=== PATIENT | male | born 1945 | race Caucasian/White ===

== ENCOUNTER → 2018-04-10 14:41 | Outpatient (CLI) | payer MEDICARE, SELFPAY ==
[2018-04-10 16:43] LABS: Creatine Kinase 59 U/L (55-170)
[2018-04-10 17:01] LABS: CKMB % Relative Index 1.6 % (1.5-5.0); Creatine Kinase MB 0.92 ng/mL (<2.37)
[2018-04-10 17:03] LABS: Troponin I < 0.012 ng/mL (0.01-0.034)
== END ==
PROVIDERS: PCP Family Medicine; Visit Provider Internal Medicine
DX: R07.9 Chest pain, unspecified (principal)
CPT/HCPCS: 36415; 82550; 82553; 84484

== ENCOUNTER → 2018-04-23 14:44 | Outpatient (CLI) | payer MEDICARE, SELFPAY ==
[2018-04-23 15:39] LABS: Add Manual Diff / Slide Review NO; Eosinophils Percent Auto 8.1 % (2-4); Hematocrit 44.4 % (41-53); Hemoglobin 14.8 g/dL (13.5-17.5); Lymphocytes Percent Auto 26.2 % (25-40); Mean Corpuscular HGB Conc 33.4 % (30-36); Mean Corpuscular Hemoglobin 30.8 PG (26-34); Mean Corpuscular Volume 92.2 fL (80-100); Monocytes Percent Auto 7.3 % (3-14); Neutrophils Absolute Auto 4000 /uL (3000-5900); Neutrophils Percent Auto 57.4 % (50-75); Platelet Count 147 X10^3/uL (150-400); Red Blood Cell Count 4.82 X10^6/uL (4.5-5.9); Red Cell Distribution Width 13.7 % (11.6-14.8)
[2018-04-23 16:09] LABS: C-Reactive Protein Quant < 0.5 mg/dL (<1.0); Erythrocyte Sedimentation Rate 6 MM/HR (0-15)
[2018-04-23 16:37] LABS: Thyroid Stimulating Hormone 1.38 uIU/mL (0.47-4.68)
== END ==
PROVIDERS: PCP Family Medicine; Visit Provider Family Medicine
DX: R42 Dizziness and giddiness (principal)
CPT/HCPCS: 36415; 84443; 85025; 85651; 86140

== ENCOUNTER 2018-05-07 09:45 | Outpatient (RCR) | payer MEDICARE, SELFPAY ==
--- NOTE | 2018-04-30 10:30 | PT.OIE ---
Current Diagnoses Dizziness and giddiness (04/30/18) Past Medical History (Last Updated 04/10/18 @ 10:05 by Odette Roque) Fractures (Resolved 1975) Hand abrasion, infected (Resolved 05/2015) Shoulder pain (Resolved 1975) Past Surgical History (Last Updated 04/10/18 @ 10:05 by Odette Roque) Anesthesia (Resolved) Status post cholecystectomy (Resolved 01/2015) Provider Visit Care Team Role Provider Type Paolo Canales MD Attending Provider Physician Family Provider Primary Care Provider Specialty: Family Practice Address: [address] [place] [address] Email: [email or web address] Physical Therapy Initial Evaluation PT-OP-A Visit Information Start: 04/30/18 11:22 Freq: Status: Active Protocol: Document 04/30/18 11:23 MDD (Rec: 04/30/18 11:45 MDD [email or web address]) Out-Patient Physical Therapy Visit Information Visit Information Visit Type Initial Evaluation Visit Start Time 09:47 Visit Stop Time 10:30 Visit Number 1 Number of CHEMISTRY TEACHER Visits 0 Evaluation Information Evaluation Date 04/30/18 PT-OP-B Current Condition Start: 04/30/18 11:22 Freq: Status: Active Protocol: Document 04/30/18 11:23 MDD (Rec: 04/30/18 11:45 MDD [email or web address]) Current Condition History of Current Condition Onset Date more than a year ago Current Complaints dizziness, nausea History of Current Condition Comes in with his , Barbara. Pt reports intermittent dizziness that seems to occur every other day. Reports some low level dizziness that is constant, but worsens with looking up or turning quickly. Describes the room as spinning. Also comes on if he sees someone else moving their head. Worse in the morning and usually improves as the day goes on. Has not vomited, but does get nauseous . Also feels sweaty after symptoms resolve. Uses a tripod cane. Doesn't drive on days it is bad. Has not fallen due to dizziness, but staggers and wall walks if needed. Had a fall yesterday when he sat in a wheelchair without using the brakes. Prior Treatments and Tests Multiple brain images. Has not tried medication. Future Testing and Treatments Planned Also has an appointment with an hide tanner scheduled. Treatment Goals Patient/Caregiver Goals Resolve dizziness. Prior Functional Status Baseline Function- ADL's Independent Baseline Function- Mobility Independent Baseline Function- Gait mod Ind with tripod cane Current Functional Impairments (Reported) Functional Limitations- Mobility/Gait unsteady with gait Functional Limitations- Other unable to drive on days symptoms are bad PT-OP-C Subjective Start: 04/30/18 11:22 Freq: Status: Active Protocol: Document 04/30/18 11:23 MDD (Rec: 04/30/18 11:45 MDD [email or web address]) Patient Questionnaires ABC- Activity Specific Balance Confidence Scale ABC Score 49.375 ABC Functional Impairment 40 to <60% Impaired (Score 41- 60) PT-OP-K Range of Motion Start: 04/30/18 11:22 Freq: Status: Active Protocol: Document 04/30/18 11:23 MDD (Rec: 04/30/18 11:45 MDD [email or web address]) Cervical Spine Range of Motion Cervical Spine Active Testing Position Sitting Comments all movements within functional limits. Cervical extension aggravates dizzy symptoms. PT-OP-O Vestibular Start: 04/30/18 11:22 Freq: Status: Active Protocol: Document 04/30/18 11:23 MDD (Rec: 04/30/18 11:45 MDD [email or web address]) Vestibular Assessment Visual Testing Smooth Pursuits Horizontal wfl Smooth Pursuits Vertical wfl Saccades Horizontal wfl Saccades Vertical wfl Convergence Test WNL Head Shake Negative Vestibulo-Ocular Reflex (VOR1) Negative Vestibulo-Ocular Reflex (VOR2) Negative Positional Testing [place]-Hallpike Positive Left Supine to Sit Negative Sit to Supine Negative PT-OP-Q Treatments Start: 04/30/18 11:22 Freq: Status: Active Protocol: Document 04/30/18 11:23 MDD (Rec: 04/30/18 11:45 MDD [email or web address]) Canalithic Repositioning BPPV Treatment Jay Affected Canal(s) left posterior Reps 1 Comments nystagmus noted with pt report of symptom provocation with each step. PT-OP-T Assessment and Plan Start: 04/30/18 11:22 Freq: Status: Active Protocol: Document 04/30/18 11:23 MDD (Rec: 04/30/18 11:45 MDD [email or web address]) Physical Therapy Assessment Rehab Potential Rehabilitation Potential Excellent Evaluation Complexity Number of Personal Factors/Comorbidities 0 Number of Body Systems Impaired 1-2 Clinical Presentation at Evaluation Stable Impairments Impairments Balance Coordination Gait Vestibular Goals 1 Impairment vestibular Short Term Goal (STG) Pt to report decreased baseline dizziness to no greater than 2/10 with daily activities. STG Duration 2 weeks Control Engineer Goal (LTG) Pt to report no baseline dizziness with daily activities. Assessment Summary Assessment Pt complaining of intermittent dizziness and nausea that is currently limiting his ability to drive and ambulate safely. On examination he has impaired balance, impaired gait and vestibular impairments. His signs and symtpoms seem consistent with BPPV. He should benefit from physical therapy treatment to address the above impairments. Physical Therapy Plan Frequency and Duration Frequency of Treatment 1x/Week Duration of Treatment 4 weeks Plan of Care Start Date 04/30/18 Plan of Care End Date 06/01/18 Next Visit Focus/Plan Next Note Type Treatment Note Next Visit Plan perform shi hallpike with second jay maneuver if positive.
--- NOTE | 2018-04-30 11:48 | PT.OPPOC ---
Current Diagnoses Dizziness and giddiness (04/30/18) Provider Visit Care Team Role Provider Type Paolo Canales MD Attending Provider Physician Family Provider Primary Care Provider Specialty: Family Practice Address: [address] [place] [address], [id number] Email: [email or web address] Plan Of Care PT-OP-T Assessment and Plan Start: 04/30/18 11:22 Freq: Status: Active Protocol: Document 04/30/18 11:23 MDD (Rec: 04/30/18 11:45 MDD [email or web address]) Physical Therapy Assessment Rehab Potential Rehabilitation Potential Excellent Evaluation Complexity Number of Personal Factors/Comorbidities 0 Number of Body Systems Impaired 1-2 Clinical Presentation at Evaluation Stable Impairments Impairments Balance Coordination Gait Vestibular Goals 1 Impairment vestibular Short Term Goal (STG) Pt to report decreased baseline dizziness to no greater than 2/10 with daily activities. STG Duration 2 weeks Telephoto Engineer Goal (LTG) Pt to report no baseline dizziness with daily activities. Assessment Summary Assessment Pt complaining of intermittent dizziness and nausea that is currently limiting his ability to drive and ambulate safely. On examination he has impaired balance, impaired gait and vestibular impairments. His signs and symtpoms seem consistent with BPPV. He should benefit from physical therapy treatment to address the above impairments. Physical Therapy Plan Frequency and Duration Frequency of Treatment 1x/Week Duration of Treatment 4 weeks Plan of Care Start Date 04/30/18 Plan of Care End Date 06/01/18 Next Visit Focus/Plan Next Note Type Treatment Note Next Visit Plan perform shi hallpike with second jay maneuver if positive. Plan of Care Dates Plan of Care Start Date 04/30/18 Plan of Care End Date 06/01/18 Please Sign and Return: I have reviewed this Plan of Care and certify that the skilled therapy services above are required to meet the patient?s needs. Physician Signature Date Printed Name and Credentials Clinical Instructor Signature Printed Name and Credentials
--- NOTE | 2018-05-07 10:10 | PT.OTN ---
Current Diagnoses Dizziness and giddiness (05/07/18) Physical Therapy Treatment Note PT-OP-A Visit Information Start: 04/30/18 11:22 Freq: Status: Active Protocol: Document 05/07/18 10:10 MDD (Rec: 05/07/18 10:34 MDD [email or web address]) Out-Patient Physical Therapy Visit Information Visit Information Visit Type Treatment Note Visit Start Time 09:50 Visit Stop Time 10:10 Total Visit Minutes 20 Visit Number 2 Number of VB NET DEVELOPER Visits 0 Evaluation Information Evaluation Date 04/30/18 PT-OP-B Current Condition Start: 04/30/18 11:22 Freq: Status: Active Protocol: Document 04/30/18 11:23 MDD (Rec: 04/30/18 11:45 MDD [email or web address]) Current Condition History of Current Condition Onset Date more than a year ago Current Complaints dizziness, nausea History of Current Condition Comes in with his , Barbara. Pt reports intermittent dizziness that seems to occur every other day. Reports some low level dizziness that is constant, but worsens with looking up or turning quickly. Describes the room as spinning. Also comes on if he sees someone else moving their head. Worse in the morning and usually improves as the day goes on. Has not vomited, but does get nauseous . Also feels sweaty after symptoms resolve. Uses a tripod cane. Doesn't drive on days it is bad. Has not fallen due to dizziness, but staggers and wall walks if needed. Had a fall yesterday when he sat in a wheelchair without using the brakes. Prior Treatments and Tests Multiple brain images. Has not tried medication. Future Testing and Treatments Planned Also has an appointment with an churn operator scheduled. Treatment Goals Patient/Caregiver Goals Resolve dizziness. Prior Functional Status Baseline Function- ADL's Independent Baseline Function- Mobility Independent Baseline Function- Gait mod Ind with tripod cane Current Functional Impairments (Reported) Functional Limitations- Mobility/Gait unsteady with gait Functional Limitations- Other unable to drive on days symptoms are bad PT-OP-C Subjective Start: 04/30/18 11:22 Freq: Status: Active Protocol: Document 05/07/18 10:10 MDD (Rec: 05/07/18 10:34 MDD [email or web address]) OP-PT Subjective Patient Comments Patient Comments Pt reports that his symptoms have completely resolved. He did feel another attack come on the same day as his initial evaluation, but went through the maneuver himself and reports it gradually resolved over the next few days. Has not had any symptoms at all in the last two days. Patient Reported Progress Improving PT-OP-K Range of Motion Start: 04/30/18 11:22 Freq: Status: Active Protocol: Document 04/30/18 11:23 MDD (Rec: 04/30/18 11:45 MDD [email or web address]) Cervical Spine Range of Motion Cervical Spine Active Testing Position Sitting Comments all movements within functional limits. Cervical extension aggravates dizzy symptoms. PT-OP-O Vestibular Start: 04/30/18 11:22 Freq: Status: Active Protocol: Document 05/07/18 10:10 MDD (Rec: 05/07/18 10:34 MDD [email or web address]) Vestibular Assessment Positional Testing [place]-Hallpike Negative Left Negative Right PT-OP-Q Treatments Start: 04/30/18 11:22 Freq: Status: Active Protocol: Document 05/07/18 10:10 MDD (Rec: 05/07/18 10:34 MDD [email or web address]) Canalithic Repositioning BPPV Treatment [place] Affected Canal(s) No affected canals Reps 1 Comments Reviewed maneuver today for self treatment if indicated. PT-OP-T Assessment and Plan Start: 04/30/18 11:22 Freq: Status: Active Protocol: Document 05/07/18 10:10 MDD (Rec: 05/07/18 10:34 MDD [email or web address]) Physical Therapy Assessment Rehab Potential Rehabilitation Potential Excellent Goals 1 Impairment vestibular Short Term Goal (STG) Pt to report decreased baseline dizziness to no greater than 2/10 with daily activities. STG Duration 2 weeks Group Home Goal (LTG) Pt to report no baseline dizziness with daily activities. Progress Towards Goals Progress Towards Goals Progressing Toward Goals Goals Met Progress Comments Pt reports full resolution of dizzy symptoms today. Physical Therapy Plan Discharge Physical Therapy Discharge Reasons Goals Met
== END 2018-07-23 16:09 ==
LOC: PHYS 09:45
PROVIDERS: Family Provider Family Medicine; PCP Family Medicine; Visit Provider Family Medicine
DX: R42 Dizziness and giddiness (principal)
CPT/HCPCS: 95992; 97161

== ENCOUNTER → 2018-07-25 09:37 | Outpatient (CLI) | payer MEDICARE, SELFPAY ==
[2018-07-25 10:41] LABS: Add Manual Diff / Slide Review NO; Basophils Percent Auto 0.8 % (0-2); Eosinophils Percent Auto 8.5 % (2-4); Hematocrit 43.5 % (41-53); Hemoglobin 14.5 g/dL (13.5-17.5); Lymphocytes Percent Auto 26.9 % (25-40); Mean Corpuscular HGB Conc 33.3 % (30-36); Mean Corpuscular Hemoglobin 30.6 PG (26-34); Mean Corpuscular Volume 91.9 fL (80-100); Monocytes Percent Auto 6.4 % (3-14); Neutrophils Absolute Auto 3600 /uL (3000-5900); Neutrophils Percent Auto 57.4 % (50-75); Platelet Count 147 X10^3/uL (150-400); Red Blood Cell Count 4.74 X10^6/uL (4.5-5.9); White Blood Cell Count 6.2 X10^3/uL (4.5-11.0)
[2018-07-25 11:06] LABS: Uric Acid 6.5 mg/dL (3.5-8.5)
[2018-07-25 11:09] LABS: Erythrocyte Sedimentation Rate 11 MM/HR (0-15)
== END ==
PROVIDERS: PCP Family Medicine; Visit Provider Family Medicine
DX: M10.9 Gout, unspecified (principal)
CPT/HCPCS: 36415; 84550; 85025; 85651

== ENCOUNTER → 2019-02-07 07:56 | Outpatient (CLI) | payer MEDICARE, SELFPAY ==
[2019-02-07 09:05] LABS: Add Manual Diff / Slide Review NO; Basophils Absolute Auto 100 /uL (0-100); Basophils Percent Auto 0.8 % (0-2); Eosinophils Absolute Auto 400 /uL (0-450); Eosinophils Percent Auto 6.2 % (2-4); Hematocrit 44.3 % (41-53); Hemoglobin 14.8 g/dL (13.5-17.5); Lymphocytes Absolute Auto 1900 /uL (1100-4500); Lymphocytes Percent Auto 27.2 % (25-40); Mean Corpuscular HGB Conc 33.3 % (30-36); Mean Corpuscular Hemoglobin 30.5 PG (26-34); Mean Corpuscular Volume 91.6 fL (80-100); Monocytes Absolute Auto 500 /uL (0-900); Monocytes Percent Auto 6.5 % (3-14); Neutrophils Absolute Auto 4200 /uL (1500-7000); Neutrophils Percent Auto 59.3 % (50-75); Platelet Count 150 X10^3/uL (150-400); Red Blood Cell Count 4.84 X10^6/uL (4.5-5.9); Red Cell Distribution Width 14.3 % (11.6-14.8); White Blood Cell Count 7.2 X10^3/uL (4.5-11.0)
[2019-02-07 09:51] LABS: Alanine Aminotransferase 38 IU/L (21-72); Albumin 4.3 g/dL (3.5-5.0); Albumin Globulin Ratio 1.5 (1.0-2.8); Alkaline Phosphatase 78 U/L (38-126); Aspartate Aminotransferase 30 IU/L (17-59); BUN Creatinine Ratio 17.5 (6-22); Bilirubin Total 0.7 mg/dL (0.2-1.3); Blood Urea Nitrogen 21 mg/dL (9-20); Calcium 9.2 mg/dL (8.4-10.2); Carbon Dioxide 29 mmol/L (22-32); Chloride 103 mmol/L (98-107); Cholesterol 184 mg/dL (140-199); Globulin 2.8 g/dL (1.7-4.1); Glucose 100 mg/dL (80-110); HDL Cholesterol 40 mg/dL (40-60); HEMOLYSIS < 15 (0-50); LDL Cholesterol Calculated 125 mg/dL (<100); Potassium 4.4 mmol/L (3.4-5.1); Sodium 140 mmol/L (137-145); Total Protein 7.1 g/dL (6.3-8.2); Triglycerides 96 mg/dL (35-150)
[2019-02-07 10:03] LABS: Creatinine Urine Random 94.2 mg/dL
[2019-02-07 10:07] LABS: Microalbumi Creatinin Ratio Ur 9.5 ug/mg CR (<30); Microalbumin Urine Random 0.9 mg/dL (0-1.6)
[2019-02-07 10:19] LABS: Prostate Specific Antigen Scrn 0.493 ng/mL (0.1-4.0)
[2019-02-07 10:22] LABS: Thyroid Stimulating Hormone 1.46 uIU/mL (0.47-4.68)
== END ==
PROVIDERS: PCP Family Medicine; Visit Provider Family Medicine
DX: E78.2 Mixed hyperlipidemia (principal); I10 Essential (primary) hypertension; R89.9 Unspecified abnormal finding in specimens from other organs, systems and tissues; Z12.5 Encounter for screening for malignant neoplasm of prostate; Z13.0 Encounter for screening for diseases of the blood and blood-forming organs and certain disorders involving the immune mechanism; Z13.29 Encounter for screening for other suspected endocrine disorder
CPT/HCPCS: 36415; 80053; 80061; 82043; 82570; 84443; 85025; G0103

== ENCOUNTER → 2019-08-19 12:57 | Outpatient (CLI) | payer MEDICARE, SELFPAY ==
--- NOTE | 2019-08-19 13:00 | DI.RAD.S_ITS ---
PROCEDURE: XR CHEST 2V INDICATIONS: Chest pain TECHNIQUE: 2 views of the chest were acquired. COMPARISON: None. FINDINGS: Surgical changes and devices: Right upper quadrant surgical clips. Lungs and pleura: Low lung volumes with scattered subsegmental atelectasis/scarring. No pleural effusions or pneumothorax. Mediastinum: Mediastinal contours are normal. Heart size is normal. Bones and chest wall: No suspicious bony abnormalities. Soft tissues appear unremarkable. IMPRESSION: Low lung volumes with scattered subsegmental atelectasis/scarring. Dictated by: Piotr Malin M.D. on 08/19/2019 at 16:35 Approved by: Piotr Malin M.D. on 08/19/2019 at 16:36
[2019-08-19 14:35] LABS: Add Manual Diff / Slide Review NO; Basophils Absolute Auto 100 /uL (0-100); Basophils Percent Auto 0.9 % (0-2); Eosinophils Absolute Auto 500 /uL (0-450); Eosinophils Percent Auto 7.1 % (2-4); Hematocrit 45.1 % (41-53); Hemoglobin 15.2 g/dL (13.5-17.5); Lymphocytes Absolute Auto 1800 /uL (1100-4500); Lymphocytes Percent Auto 27.8 % (25-40); Mean Corpuscular HGB Conc 33.7 % (30-36); Mean Corpuscular Hemoglobin 30.8 PG (26-34); Mean Corpuscular Volume 91.2 fL (80-100); Monocytes Absolute Auto 400 /uL (0-900); Monocytes Percent Auto 6.4 % (3-14); Neutrophils Absolute Auto 3700 /uL (1500-7000); Neutrophils Percent Auto 57.8 % (50-75); Platelet Count 153 X10^3/uL (150-400); Red Blood Cell Count 4.95 X10^6/uL (4.5-5.9); Red Cell Distribution Width 13.7 % (11.6-14.8); White Blood Cell Count 6.4 X10^3/uL (4.5-11.0)
[2019-08-19 14:53] LABS: B Type Natriuretic Peptide < 100 (<100)
[2019-08-19 15:56] LABS: Alanine Aminotransferase 44 IU/L (<50); Albumin 4.5 g/dL (3.5-5.0); Albumin Globulin Ratio 1.6 (1.0-2.8); Alkaline Phosphatase 86 U/L (38-126); Aspartate Aminotransferase 38 IU/L (17-59); Bilirubin Total 0.5 mg/dL (0.2-1.3); Blood Urea Nitrogen 18 mg/dL (9-20); Calcium 9.4 mg/dL (8.4-10.2); Carbon Dioxide 32 mmol/L (22-32); Chloride 102 mmol/L (98-107); Globulin 2.9 g/dL (1.7-4.1); Glucose 88 mg/dL (80-110); HEMOLYSIS 16 (0-50); Potassium 4.1 mmol/L (3.4-5.1); Sodium 141 mmol/L (137-145); Total Protein 7.4 g/dL (6.3-8.2)
[2019-08-19 16:32] LABS: Thyroid Stimulating Hormone 1.75 uIU/mL (0.47-4.68)
== END ==
PROVIDERS: PCP Family Medicine; Visit Provider Family Medicine
DX: R07.9 Chest pain, unspecified (principal)
CPT/HCPCS: 36415; 71046; 80053; 83880; 84443; 85025

== ENCOUNTER → 2020-03-10 08:20 | Outpatient (CLI) | payer MEDICARE, SELFPAY ==
[2020-03-10 09:23] LABS: Add Manual Diff / Slide Review NO; Basophils Absolute Auto 0 /uL (0-100); Basophils Percent Auto 0.8 % (0-2); Eosinophils Absolute Auto 500 /uL (0-450); Eosinophils Percent Auto 7.2 % (2-4); Hematocrit 43.5 % (41-53); Hemoglobin 14.9 g/dL (13.5-17.5); Lymphocytes Absolute Auto 1400 /uL (1100-4500); Mean Corpuscular HGB Conc 34.3 % (30-36); Mean Corpuscular Hemoglobin 31.4 PG (26-34); Mean Corpuscular Volume 91.5 fL (80-100); Monocytes Absolute Auto 400 /uL (0-900); Neutrophils Absolute Auto 4000 /uL (1500-7000); Platelet Count 132 X10^3/uL (150-400); Red Blood Cell Count 4.75 X10^6/uL (4.5-5.9); Red Cell Distribution Width 13.7 % (11.6-14.8); White Blood Cell Count 6.3 X10^3/uL (4.5-11.0)
[2020-03-10 10:04] LABS: Alanine Aminotransferase 42 IU/L (<50); Albumin 4.4 g/dL (3.5-5.0); Albumin Globulin Ratio 1.5 (1.0-2.8); Alkaline Phosphatase 81 U/L (38-126); Aspartate Aminotransferase 39 IU/L (17-59); BUN Creatinine Ratio 16.4 (6-22); Bilirubin Total 0.7 mg/dL (0.2-1.3); Bilirubin Unconjugated 0.6 mg/dL (0.0-1.1); Blood Urea Nitrogen 20 mg/dL (9-20); Calcium 9.4 mg/dL (8.4-10.2); Carbon Dioxide 29 mmol/L (22-32); Chloride 103 mmol/L (98-107); Cholesterol 164 mg/dL (140-199); Estimated Glomerular Filt Rate 57.8 mL/min (>60); Globulin 2.9 g/dL (1.7-4.1); Glucose 102 mg/dL (80-110); HDL Cholesterol 34 mg/dL (40-60); LDL Cholesterol Calculated 115 mg/dL (<100); Potassium 4.5 mmol/L (3.4-5.1); Sodium 141 mmol/L (137-145); Total Protein 7.3 g/dL (6.3-8.2); Triglycerides 74 mg/dL (35-150)
[2020-03-10 10:14] LABS: HEMOLYSIS < 15 (0-50); NT-proBNP (BNP-Adult 18+) 66 pg/mL (<450)
[2020-03-10 10:32] LABS: Thyroid Stimulating Hormone 1.42 uIU/mL (0.47-4.68)
[2020-03-10 10:36] LABS: Prostate Specific Antigen 0.367 ng/mL (0.10-4.00)
== END ==
PROVIDERS: PCP Family Medicine; Referring Provider Internal Medicine Cardiovascular Disease; Visit Provider Internal Medicine Cardiovascular Disease
DX: Z79.899 Other long term (current) drug therapy (principal); R03.0 Elevated blood-pressure reading, without diagnosis of hypertension; I50.30 Unspecified diastolic (congestive) heart failure
CPT/HCPCS: 36415; 80048; 80061; 80076; 83880; 84153; 84443; 85025

== ENCOUNTER → 2021-04-07 14:01 | Outpatient (CLI) | payer MEDICARE, OTHER, SELFPAY ==
--- NOTE | 2021-04-07 14:04 | DI.RAD.S_ITS ---
PROCEDURE: XR HAND LT MIN 3V INDICATIONS: left hand/thumb pain TECHNIQUE: 3 views of the hand(s) acquired. COMPARISON: [facility], , HAND 3V LEFT, 11/15/2006, 10:23. FINDINGS: Bones: No fractures or dislocations. Carpal bones are normally aligned. No suspicious bony lesions. Polyarticular joint space narrowing with periarticular osteophytosis, severe involving the 1st CMC joint. Juxta-articular lucencies are present involving multiple interphalangeal joints. Soft tissues: No suspicious soft tissue calcifications. 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 Dictated by: Tye Hernandez Sofia Interpreted: Aaron Gilbert MD on 04/07/2021 at 14:26 Transcribed by: ABIGAIL on 04/07/2021 at 14:27 Approved by: Aaron Gilbert M.D. on 04/07/2021 at 18:06
--- OUTSIDE RECORDS SUMMARY | 2021-07-19 08:06 | XMS_ITS | Referral Summary ---
:1945 Author Organization [address] [address] Care Team Providers Name Role Phone MD Gary Primary Care Provider Reason for Referral Diagnostic Imaging (Routine) - Authorized Specialty Diagnoses / Procedures Referred By Contact Refer red To Contact Diagnoses WHITE (dyspnea on exertion) [facility] ECHOCARDIO[facility] COMPLETE [address] [place] [address] [place] [id number] [place], [place] [address] Referral ID Status Reason Start Date Expiration Date Visits V isits Requested Authorized [id number] Authorized 07/05/2021 06/30/2022 1 1 Consultation (Routine) - Authorized Specialty Diagnoses / Procedures Referred By Contact Refer red To Contact Diagnoses Fatigue, unspecified type Rosey Alcocer[address] [facility] [address] [place] [address] [place], [place] [address] Referral ID Status Reason Start Expiration Visits Visits Date Date Requested Authorized [id number] Authorized Specialty 07/05/2021 06/30/2022 1 1 Services Required Reason for Visit Reason Comments Establish Care chest pain, HTN Evaluate and Treat (Routine) - Closed Specialty Diagnoses / Procedures Referred By Contact Refer red To Contact Diagnoses Chest pain, unspecified Essential (primary) hypertension Shortness of breath Deshawn Vega MD [facility] Procedures SC OFFICE OUTPATIENT VISIT [address], [address] [place] [address] [place] [address] Phone: [phone] Fax: Referral ID Status Reason Start Date Expiration Date Visits Requ ested Visits Authorized [id number] Closed 05/14/2021 05/09/2022 1 1 Encounter Details Date Type Department Care Team Description 07/05/2021 [facility] Chest pa in, unspecified type (Primary Dx); Clinics Cardiology E., DO WHITE (dyspnea on exertion); [address] Essential hypertension; [address] Dyslipidemia; [place], [place] BMI 34.0-3 4.9,adult; [id number] Fatigue, unspecified type [phone] Allergies Active Allergy Reactions Severity Noted Date Comments Oxycodone Hives 08/29/2019 documented as of this encounter (statuses as of 07/16/2021) Medications Medication Sig Dispensed Refills Start Date End Date Status amLODIPine (NORVASC) 5 Take 5 mg by 0 Active mg tablet mouth daily aspirin 81 mg EC tablet Take 81 mg by 0 Active mouth daily ascorbic acid, vitamin Take 500 mg by 0 Active C, (VITAMIN C) 500 mg mouth tablet documented as of this encounter (statuses as of 07/16/2021) Active Problems Problem Noted Date Essential hypertension 07/05/2021 documented as of this encounter (statuses as of 07/16/2021) Social History Tobacco Use Types Packs/Day Years Used Date Never Smoker Smokeless Tobacco: Never Used Alcohol Use Standard Drinks/Week Comments Not Currently 0 (1 standard drink = 0.6 oz pure alcoho l) Sex Assigned at Date Recorded Not on file Job Start Date Occupation Industry Not on file Not on file Not on file documented as of this encounter Last Filed Vital Signs Vital Sign Reading Time Taken Comments Blood Pressure 115/78 07/05/2021 2:37 PM PDT Pulse 65 07/05/2021 2:37 PM PDT Temperature - - Respiratory Rate - - Oxygen Saturation 98% 07/05/2021 2:37 PM PDT Inhaled Oxygen Concentration - - Weight 106 kg (233 lb) 07/05/2021 2:37 PM PDT Height 175.3 cm (5' 9) 07/05/2021 2:37 PM PDT Body Mass Index 34.41 07/05/2021 2:37 PM PDT documented in this encounter Progress Notes Rosey Alcocer, DO - 07/05/2021 2:50 PM PDT Images from the original note were not included. About 1 week before your next appt, have a fasting blood test. Patient Education Heart Healthy Diet ELEMENTARY CLASSROOM TEACHER: A heart healthy diet is an eating plan low in unhealthy fats and sodium (salt). The plan is high inhealthy fats and fiber. A heart healthy diet helps improve your cholesterol levels and lowers your risk for heart disease and stroke. A dietitian will teach you how to read and understand food labels. Heart healthy diet guidelines to follow: ?? Choose foods that contain healthy fats. ? Unsaturated fats include monounsaturated and polyunsaturated fats. Unsaturated fat is found in foods such as soybean, canola, olive, corn, and safflower oils. It is also found in soft tub margarine that is made with liquid vegetable oil. ? [place]-3 fat is found in certain fish, such as salmon, tuna, and trout, and in walnuts and flaxseed. Eat fish high in omega-3 fats at least 2 times a week. ?? Get 20 to 30 grams of fiber each day. Fruits, vegetables, whole-grain foods, and legumes (cookedbeans) are good sources of fiber. ?? Limit or do not have unhealthy fats. ? Cholesterol is found in animal foods, such as eggs and lobster, and in dairy products made from whole milk. Limit cholesterol to less than 200 mg each day. ? Saturated fat is found in meats, such as giles and hamburger. It is also found in chicken or turkey skin, whole milk, and butter. Limit saturated fat to less than 7% of your total daily calories. ? Trans fat is found in packaged foods, such as potato chips and cookies. It is also in hard margarine, some fried foods, and shortening. Do not eat foods that contain trans fats. ?? Limit sodium as directed. You may be told to limit sodium to 2,000 to 2,300 mg each day. Choose low-sodium or ca-uayo-indxs foods. Add little or no salt to food you prepare. Use herbs and spices inplace of salt. Include the following in your heart healthy plan: Ask your dietitian or healthcare provider how many servings to have from each of the following food groups: ?? Grains: ? Whole-wheat breads, cereals, and pastas, and brown rice ? Low-fat, low-sodium crackers and chips ?? Vegetables: ? Broccoli, green beans, green peas, and spinach ? Collards, kale, and ochoa beans ? Carrots, sweet potatoes, tomatoes, and peppers ? Canned vegetables with no salt added ?? Fruits: ? Bananas, peaches, pears, and pineapple ? Grapes, raisins, and dates ? Oranges, tangerines, grapefruit, orange juice, and grapefruit juice ? Apricots, mangoes, melons, and papaya ? Raspberries and strawberries ? Canned fruit with no added sugar ?? Milks: Low-fat almond, cashew, or soy milks fortified with calcium ? Proteins: ? Legumes, soy products or nuts Limit or do not include the following in your heart healthy plan: ?? Unhealthy fats and oils: ? Whole or 2% milk, cream cheese, sour cream, or cheese ? High-fat cuts of beef (T-bone steaks, ribs), chicken or turkey with skin, and organ meats such as liver ? Butter, stick margarine, shortening, and cooking oils such as coconut or palm oil ?? Foods and liquids high in sodium: ? Packaged foods, such as frozen dinners, cookies, macaroni and cheese, and cereals with more than 300 mg of sodium per serving ? Vegetables with added sodium, such as instant potatoes, vegetables with added sauces, or regular canned vegetables ? Cured or smoked meats, such as hot dogs, giles, and sausage ? High-sodium ketchup, barbecue sauce, salad dressing, pickles, olives, soy sauce, or miso ?? Foods and liquids high in sugar: ? Candy, cake, cookies, pies, or doughnuts ? Soft drinks (soda), sports drinks, or sweetened tea ? Canned or dry mixes for cakes, soups, sauces, or gravies Other healthy heart guidelines: ?? Do not smoke. Nicotine and other chemicals in cigarettes and cigars can cause lung and heart damage. Ask your healthcare provider for information if you currently smoke and need help to quit. E-cigarettes or smokeless tobacco still contain nicotine. Talk to your healthcare provider before you use these products. ?? Limit or do not drink alcohol as directed. Alcohol can damage your heart and raise your blood pressure. Your healthcare provider may give you specific daily and weekly limits. The general recommended limit is 1 drink a day for women 21 or older and for men 65 or older. Do not have more than 3 drinks in a day or 7 in a week. The recommended limit is 2 drinks a day for men 21 to 64 years of age. Donot have more than 4 drinks in a day or 14 in a week. A drink of alcohol is 12 ounces of beer, 5 ounces of wine, or 1?? ounces of liquor. ?? Exercise regularly. Exercise can help you maintain a healthy weight and improve your blood pressure and cholesterol levels. Regular exercise can also decrease your risk for heart problems. Ask yourhealthcare provider about the best exercise plan for you. Do not start an exercise program without asking your healthcare provider. Follow up with your doctor or power shear operator as directed: Write down your questions so you remember to ask them during your visits. ?? Copyright [employer] 2020 Information is for End User's use only and may not be sold, redistributed or otherwise used for commercial purposes. All illustrations and images included in CareNotes?? are the copyrighted property of [employer] or [employer] The above information is an health education aide only. It is not intended as medical advice for individual conditions or treatments. Talk to your doctor, nurse or pharmacist before following any medical regimen to see if it is safe and effective for you. Belgica Alcocer, - 07/05/2021 2:50 PM PDT Subjective Patient ID: Isreal Broderick is a 75 y.o. male that had concerns including Establish Care (chest pain, HTN). HPI: Chest pain: About 1 month ago he had an episode of L sided, sharp chest pain that was exertional and associated with SOB and diaphoresis. He will also get chest tightness with exertion up hills. No associated nausea, palpitations, lightheadedness or dizziness. ???08/30/2019 cath mild LI noted throughout the coronaries but no obstructive disease. ???06/30/2021 stress echo 9:18, 10.6 METS, 97% peak predicted HR, no ECG or echo evidence of inducible ischemia. Shortness of breath: No orthopnea or LE swelling. Snoring: reports apneic episodes. Hypertension: On amlodipine 5 mg daily. Dyslipidemia: No medical therapy for this. 04/09/2021 hemoglobin 15, hematocrit 45, platelets 135, BUN 22, creatinine 1.12, potassium 4.4, glucose 98, AST 40, ALT 38, total cholesterol 179, triglycerides 82, HDL 41, LDL 122 Past Medical History: Diagnosis Date ??? Depression ??? Gout ??? Hyperlipidemia ??? Hypertension ??? Thrombocytopenia (CMS/HCC) Past Surgical History: Procedure Laterality Date ??? CARDIAC CATHETERIZATION 2019 Luminal irregularities ??? GALLBLADDER SURGERY ??? HIP ARTHROPLASTY Right ??? TONSILLECTOMY Family History Problem Relation Age of Onset ??? Cancer Mother ??? Parkinsonism Father ??? Heart attack Father 60 [place] Social History Socioeconomic History ??? Marital status: Spouse name: Not on file ??? Number of children: Not on file ??? Years of education: Not on file ??? Highest education level: Not on file Tobacco Use ??? Smoking status: Never Smoker ??? Smokeless tobacco: Never Used Substance and Sexual Activity ??? Alcohol use: Not Currently ??? Drug use: Never ??? Sexual activity: Defer Allergies Allergen Reactions ??? Oxycodone Hives Current Medication List Sig amLODIPine (NORVASC) 5 mg tablet Take 5 mg by mouth daily ascorbic acid, vitamin C, (VITAMIN C) 500 mg tablet Take 500 mg by mouth aspirin 81 mg EC tablet Take 81 mg by mouth daily Review of Systems Cardiovascular: Positive for chest pain. All other systems reviewed and are negative. Objective BP 115/78 (BP Location: Left arm, Patient Position: Sitting) Pulse 65 Ht 1.753 m Wt 106 kg SpO2 98% BMI 34.41 kg/m?? Physical Exam: General Appearance: Well-nourished, pleasant, cooperative, no apparent distress HEET: Normocephalic atraumatic, EOMI, no scleral icterus, no arcus, tongue midline, mucous membranesmoist, good dentition Neck: No obvious mass, supple Respiratory: Good aeration, clear to auscultation and percussion, no rales or wheeze Cardiovascular: Nondisplaced PMI, RRR, normal S1 and normal S2, no murmurs/rubs/gallops, JVP 4-5 cm,no JVD Pulses: Carotid and femoral pulses 2+ bilaterally without bruit, dorsalis pedis and anterior tibial pulses 2+ bilaterally Abdomen: Soft, nondistended, nontender, no heptosplenomegally, no hepatojugular reflux, normal bowelsounds without bruits Extremities: No clubbing, cyanosis or edema Neuro: Alert, no facial droop, tongue midline, no gross motor deficits Psych: Appropriate affect, normal mentation and memory Skin: Warm and dry, no rashes on face, neck, and lower extremities Assessment/Plan Diagnoses and all orders for this visit: Chest pain, unspecified type - ECG 12 Lead (Clinic - Same Day) WHITE (dyspnea on exertion) - ECHOCARDIOGRAM COMPLETE; Future - Thyroid Stimulating Hormone, Reflex to Free T4; Future Essential hypertension Dyslipidemia - Lipid panel (Fasting); Future - Hepatic function panel (LFT); Future BMI 34.0-34.9,adult Fatigue, unspecified type - SRC MV Referral to [facility] Assessment/Plan Comments: Chest pain: ECG today is normal. Stress test last week did not show evidence of inducible ischemia,indeed he had very good exercise capacity which would argue against significant or proximal obstructive CAD. A component of this could be microvascular disease. I have encouraged him to increase his level of activity in an attempt to improve his exercise capacity. Should he have persistent symptomshowever or feels limited in his exercise abilities, will consider repeat catheterization. Shortness of breath and fatigue: He does have significant amount of fatigue and his reports apnea. I would like a full echocardiogram. I am also referring him to sleep medicine. Hypertension: Blood pressure is adequately controlled. Counseled on a low-salt diet. Continue amlodipine 5 mg daily. Dyslipidemia: LDL 122 April 2021. We discussed a low-fat, low-cholesterol diet. We will repeat a fasting lipid panel and TSH in 5 months prior to next appointment. BMI 34: Discussed a heart healthy diet. He is going to increase his exercise in an attempt to lose weight. Electronically signed by Rsoey Alcocer DO 07/05/2021 4:09 PM documented in this encounter Plan of Treatment Scheduled Orders Name Type Priority Associated Diagnoses Order S chedule ECHOCARDIOGRAM COMPLETE Imaging Routine WHITE (dyspnea on E xpected: 07/05/2021, exertion) Expires: 2022 Lipid panel (Fasting) Lab Routine Dyslipidemia Expect ed: 07/05/2021, Expires: 2021 Hepatic function panel Lab Routine Dyslipidemia Expec sarah: 07/05/2021, (LFT) Expires: 2021 Thyroid Stimulating Lab Routine WHITE (dyspnea on 1 Occ urrences Hormone, Reflex to Free exertion) star ting 07/05/2021 T4 until 2 Scheduled Referrals Name Type Priority Associated Diagnoses Order S chedule SRC MV Referral to Outpatient Referral Routine Fatigue, unspec ified Ordered: [facility] Sleep Clinic type 07/05/2021 documented as of this encounter Procedures Procedure Name Priority Date/Time Associated Diagnosis Comme nts ECG 12-LEAD Routine 07/05/2021 2:58 PM Chest pain, Results for this PDT unspecified type procedure a re in the results section. documented in this encounter Results ECG 12 Lead (Clinic - Same Day) (07/05/2021 2:58 PM PDT) Narrative Rosey Alcocer DO - 07/05/2021 2: 58 PM PDT This result has an attachment that is no t available. Result approved by Matthew Law on 07/05/21 documented in this encounter Visit Diagnoses Diagnosis Chest pain, unspecified type - Primary WHITE (dyspnea on exertion) Other dyspnea and respiratory abnormalit y Essential hypertension Unspecified essential hypertension Dyslipidemia Other and unspecified hyperlipidemia BMI 34.0-34.9,adult Fatigue, unspecified type documented in this encounter Insurance Payer Benefit Plan / Subscriber ID Effective Dates Phone Addre ss Type Group MEDICARE MEDICARE PART [id number] 2008-Presen [phone] [address] [place] [address] [facility] [id number] 2021-Prese [phone] [address] [place] [id number] [place] [address] documented as of this encounter Advance Directives Documents on File Type Date Recorded Patient Circulation Sales Representative Explanati on Advance Directives and Living Will Latest Code Status on File Code Status Date Activated Date Inactivated Comments Full Code 08/30/2019 10:28 AM 08/31/2019 2:35 AM Care Teams Life Insurance Salesperson Relationship Specialty Start Date End Date Deshawn Vega MD PCP - General Family Medicine 05/14/[address] [place] [address], [address] WEI GALLAGHER [phone] documented as of this encounter
== END ==
PROVIDERS: PCP Family Medicine; Referring Provider Family Medicine; Visit Provider Family Medicine
DX: G56.02 Carpal tunnel syndrome, left upper limb (principal); M79.642 Pain in left hand; M18.12 Unilateral primary osteoarthritis of first carpometacarpal joint, left hand
CPT/HCPCS: 73130

== ENCOUNTER → 2021-04-09 09:17 | Outpatient (CLI) | payer MEDICARE, OTHER, SELFPAY ==
[2021-04-09 10:17] LABS: Add Manual Diff / Slide Review NO; Basophils Absolute Auto 0 /uL (0-100); Basophils Percent Auto 0.8 % (0-2); Eosinophils Absolute Auto 400 /uL (0-450); Hematocrit 45.9 % (41-53); Hemoglobin 15.4 g/dL (13.5-17.5); Lymphocytes Absolute Auto 1500 /uL (1100-4500); Lymphocytes Percent Auto 24.9 % (25-40); Mean Corpuscular HGB Conc 33.5 % (30-36); Mean Corpuscular Volume 92.6 fL (80-100); Monocytes Absolute Auto 400 /uL (0-900); Monocytes Percent Auto 7.1 % (3-14); Neutrophils Absolute Auto 3800 /uL (1500-7000); Neutrophils Percent Auto 61.2 % (50-75); Platelet Count 135 X10^3/uL (150-400); Red Blood Cell Count 4.96 X10^6/uL (4.5-5.9); Red Cell Distribution Width 13.6 % (11.6-14.8); White Blood Cell Count 6.2 X10^3/uL (4.5-11.0)
[2021-04-09 10:24] LABS: Creatinine Urine Random 166.1 mg/dL
[2021-04-09 10:28] LABS: Microalbumi Creatinin Ratio Ur 8.4 ug/mg CR (<30); Microalbumin Urine Random 1.4 mg/dL (0-1.6)
[2021-04-09 10:33] LABS: Alanine Aminotransferase 38 IU/L (<50); Albumin 4.5 g/dL (3.5-5.0); Albumin Globulin Ratio 1.6 (1.0-2.8); Alkaline Phosphatase 73 U/L (38-126); Aspartate Aminotransferase 40 IU/L (17-59); BUN Creatinine Ratio 18.2 (6-22); Bilirubin Total 0.9 mg/dL (0.2-1.3); Blood Urea Nitrogen 22 mg/dL (9-20); Calcium 9.7 mg/dL (8.4-10.2); Carbon Dioxide 30 mmol/L (22-32); Chloride 106 mmol/L (98-107); Cholesterol 179 mg/dL (140-199); Estimated Glomerular Filt Rate 58.1 mL/min (>60); Globulin 2.9 g/dL (1.7-4.1); Glucose 98 mg/dL (80-110); HDL Cholesterol 41 mg/dL (40-60); HEMOLYSIS < 15 (0-50); LDL Cholesterol Calculated 122 mg/dL (<100); Potassium 4.4 mmol/L (3.4-5.1); Sodium 142 mmol/L (137-145); Total Protein 7.4 g/dL (6.3-8.2); Triglycerides 82 mg/dL (35-150)
[2021-04-09 11:04] LABS: Prostate Specific Antigen Scrn 0.442 ng/mL (0.1-4.0)
== END ==
PROVIDERS: PCP Family Medicine; Referring Provider Family Medicine; Visit Provider Family Medicine
DX: D69.6 Thrombocytopenia, unspecified (principal); I10 Essential (primary) hypertension; Z12.5 Encounter for screening for malignant neoplasm of prostate; E78.2 Mixed hyperlipidemia; R41.3 Other amnesia
CPT/HCPCS: 36415; 80053; 80061; 82043; 82570; 85025; G0103

== ENCOUNTER → 2021-08-18 08:45 | Outpatient (CLI) | payer MEDICARE, OTHER, SELFPAY ==
--- NOTE | 2021-08-18 08:48 | DI.ECHO.S_ITS ---
[facility]+ : : [address] : [place] : : : : [id number] : : : : Phone: [phone] Echocardiogram Report + + :Name: CINDY SÁNCHEZ V Study Date: 08/18/2021 Height: 69 in : :[facility] ReadingLocation: Weight: 230 lb : : Gender: Male BSA: 2.2 m2 : :: 1945 Age: 75 yrs BP: 142/84 mmHg: :Reason For Study: DYSPNEA : :Ordering Physician: MARGA, : :ROSEY Silva Performed By: Manda Wadsworth : :Referring: ROSEY ALCOCER : + + Interpretation Summary The ejection fraction is estimated to be 65-70%. Diastolic parameters suggest probable normal left ventricular diastolic function and normal filling pressures. The right ventricle is normal in size and function. There is mild mitral regurgitation. Unable to estimate PASP. Compared to the prior study dated 05/01/2014, no significant change. Procedure: A two-dimensional transthoracic echocardiogram with color flow and Doppler was performed. The study quality was technically adequate. Comparison is made with the echocardiogram of 02/13/2018. The patient was in sinus rhythm with heart rates between 59-70 bpm during the exam. Left Ventricle: The left ventricle is normal in size and wall thickness. The ejection fraction is estimated to be 65-70%. Diastolic parameters suggest probable normal left ventricular diastolic function and normal filling pressures. Right Ventricle: The right ventricle is normal in size and function. Atria: The left atrial size is normal. Right atrial size is normal. There is no Doppler evidence for an interatrial shunt. Mitral Valve: The mitral valve is normal in structure and function. There is mild mitral regurgitation. Aortic Valve: The aortic valve is trileaflet. The aortic valve opens well. There is no aortic valve stenosis. No aortic regurgitation is present. Tricuspid Valve: The tricuspid valve is normal in structure and function. There is trace tricuspid regurgitation. Pulmonary artery pressures cannot be estimated because of the lack of a measurable TR jet velocity. Pulmonic Valve: The pulmonic valve leaflets are thin and pliable; valve motion is normal. There is no pulmonic valvular regurgitation. Great Vessels: The aortic root is normal size. The ascending aorta is mildly enlarged. The IVC is of normal diameter and collapses greater than 50% with a sniff. This suggests a low right atrial pressure of 3 mm Hg. Pericardium/ Pleura There is no pericardial effusion. There is no pleural effusion. MMode/2D Measurements & Calculations LVIDd: 4.7 cm LVOT diam: 1.9 cm LVIDs: 2.9 cm Ao root diam: 3.1 cm FS: 37.3 % asc Aorta Diam: 3.9 cm IVSd: 1.0 cm LVPWd: 0.98 cm LV aaron. diameter/BSA (cm/m^2): 2.1 LV sys. diameter/BSA (cm/m^2): 1.3 LA A2 area: 20.9 cm2 RA long axis: 5.0 cm LA A4 area: 17.5 cm2 RA area: 13.9 cm2 LA length (vol): 5.4 cm RA vol: 32.7 ml LA vol: 57.2 ml RA : 14.9 ml/m2 LA vol index: 26.1 ml/m2 IVC diam: 1.7 cm RVD1 (basal): 4.0 cm TAPSE: 1.9 cm Doppler Measurements & Calculations Ao V2 max: 145.1 cm/sec LVOT Max Rasheed: 132.9 cm/sec Ao V2 mean: 95.2 cm/sec LV V1 max P.1 mmHg Ao max P.4 mmHg LV V1 VTI: 29.6 cm Ao mean P.2 mmHg STACY(I,D): 2.9 cm2 Ao V2 VTI: 29.0 cm STACY(V,D): 2.6 cm2 sev ratio: 1.0 STACY indexed to BSA (cm^2/m^2): 1.3 MV E max rasheed: 92.5 cm/sec PA V2 max: 119.2 cm/sec MV A max rasheed: 70.4 cm/sec PA V2 mean: 67.5 cm/sec MV E/A: 1.3 PA mean P.1 mmHg Med Peak E' Rasheed: 6.4 cm/sec PA pr(Accel): 44.7 mmHg E/E' med: 14.4 Lat Peak E' Rasheed: 8.4 cm/sec E/E' lat: 11.0 E/e' average: 12.7 MV dec time: 0.21 sec SV(LVOT): 85.0 ml Reading Physician:02:15 PM
== END ==
PROVIDERS: PCP Family Medicine; Referring Provider Internal Medicine Cardiovascular Disease; Visit Provider Internal Medicine Cardiovascular Disease
DX: R06.00 Dyspnea, unspecified (principal); I34.0 Nonrheumatic mitral (valve) insufficiency; I77.89 Other specified disorders of arteries and arterioles
CPT/HCPCS: 93306

== ENCOUNTER → 2021-11-26 09:39 | Outpatient (CLI) | payer MEDICARE, OTHER, SELFPAY ==
[2021-11-26 11:59] LABS: Alanine Aminotransferase 41 IU/L (<50); Albumin 4.5 g/dL (3.5-5.0); Albumin Globulin Ratio 1.5 (1.0-2.8); Alkaline Phosphatase 71 U/L (38-126); Aspartate Aminotransferase 41 IU/L (17-59); Bilirubin Total 0.9 mg/dL (0.2-1.3); Bilirubin Unconjugated 0.8 mg/dL (0.0-1.1); Cholesterol 199 mg/dL (140-199); HDL Cholesterol 39 mg/dL (40-60); HEMOLYSIS < 15 (0-50); LDL Cholesterol Calculated 136 mg/dL (<100); Total Protein 7.5 g/dL (6.3-8.2); Triglycerides 120 mg/dL (35-150)
[2021-11-26 12:30] LABS: TSH w/ Reflex to FT4 1.57 uIU/mL (0.47-4.68)
== END ==
PROVIDERS: PCP Family Medicine; Referring Provider Internal Medicine Cardiovascular Disease; Visit Provider Internal Medicine Cardiovascular Disease
DX: E78.5 Hyperlipidemia, unspecified (principal); R06.00 Dyspnea, unspecified
CPT/HCPCS: 36415; 80061; 80076; 84443

== ENCOUNTER 2022-03-13 12:42 | Emergency (ER) | payer MEDICARE, OTHER, SELFPAY ==
[2022-03-13] VITALS (7 sets, daily range): BP systolic 131–198; BP diastolic 71–108; PULSE 57–80; RESP 18–20; TEMP 36; O2SAT 95–99; BMI 35.4
--- NOTE | 2022-03-13 13:12 | DI.RAD.S_ITS ---
PROCEDURE: XR CHEST 1V INDICATIONS: left arm numbness, SOB TECHNIQUE: One view of the chest was acquired. COMPARISON: [facility], CR, XR CHEST 2V, 08/19/2019, 13:09. FINDINGS: Surgical changes and devices: Cholecystectomy clips. Lungs and pleura: Linear density at the left lung base favoring atelectasis. No focal consolidation. No pleural effusions or pneumothorax. Mediastinum: Mediastinal contours appear normal. Heart size is normal. Bones and chest wall: No suspicious bony lesions. Overlying soft tissues appear unremarkable. IMPRESSION: Linear density at the 3 left lung base favoring atelectasis. Otherwise, no evidence of an acute cardiopulmonary abnormality. Dictated by: Kwadwo Tom D.O. on 03/13/2022 at 12:48 Approved by: Kwadwo Tom D.O. on 03/13/2022 at 12:49
--- NOTE | 2022-03-13 13:14 | ED.EXTPRO ---
HPI - Extremity Problem <WILL Sun - Last Filed: 03/13/22 16:01> General Chief complaint: Extremity Problem,Nontraumatic Stated complaint: Left arm numbness, not feeling well Time Seen by Provider: 03/13/22 12:46 Source: patient Mode of arrival: Family Vehicle History of Present Illness HPI Narrative: This is a 76-year-old male with history of hypertension, hyperlipidemia, degenerative joint disease multiple sites with memory loss, carpal tunnel surgery in his left wrist September 2021, and exertional chest pain who presents to the emergency department one week after vacationing in [place] with concerns about left arm numbness while he is ambulating. He states that he has had this in the past to his rest and sometimes is forearm. He walks 1-2 miles a day, states that the pain socks when he stops. Denies any chest pain or other accompanying symptoms. He endorses feeling fatigued for the last three days, this numbness in his left arm has been occurring while walking and has progressed up to his shoulder. He denies any chest pressure, dyspnea, orthopnea but endorses shortness exertion. He denies of feeling any exertional angina recently or today. He was in [place] last week and has been back for a few days and feeling more fatigued than usual. He denies having a runny nose or a cough but states that he has felt hot and cold similar to chills. He does endorse seasonal allergies, denies any sore throat, states that he has had some congestion but has not had any fever or shortness of breath. Related Data Previous Rx's Medication Instructions Recorded indomethacin 50 mg capsule 50 mg PO BID PRN #30 cap 04/21/21 amlodipine 5 mg tablet 5 mg PO DAILY #90 tab 01/26/22 cetirizine 5 mg-pseudoephedrine ER 1 tab PO BID #20 tab 03/13/22 120 mg tablet,extended release,12hr (Zyrtec-D) fluticasone propionate 50 1 spray INTRANASAL BID PRN #16 g 03/13/22 mcg/actuation nasal spray,suspension Allergies Allergy/AdvReac Type Severity Reaction Status Date / Time oxycodone [OXYCODONE] Allergy Unknown HIVES Verified 03/13/22 13:05 Review of Systems <WILL Sun - Last Filed: 03/13/22 16:01> Review of Systems Narrative: General: denies fever, chills Head/Neck: denies headache, neck pain Eyes: denies visual changes, eye pain Cardio: denies chest pain, palpitations, chest pressure Respiratory: denies shortness of breath, cough, orthopnea GI: denies abdominal pain, nausea, vomiting, or diarrhea : denies dysuria, hematuria or flank pain MSK: denies new joint pain, muscle weakness or swelling, denies numbness or tingling in any other extremity, states that his symptoms go way if he stops walking Skin: denies rash, itching or wound Neuro: denies imbalance or weakness, dizziness Patient History <WILL Sun - Last Filed: 03/13/22 16:01> Medical History Carpal tunnel syndrome of left wrist Erectile dysfunction Exertional chest pain Fractures (1975) Hand abrasion, infected (05/2015) Hypertension Memory loss Shoulder pain (1975) Thrombocytopenia Surgical History Anesthesia Status post cholecystectomy (01/2015) Family History Mother Cancer Breast cancer Father Parkinson's disease Social History Smoking Status: Never smoker Smoking Status: Never smoker alcohol intake frequency: 0-2 drinks per day Substance Use Type: does not use Exam <WILL Sun - Last Filed: 03/13/22 16:01> Narrative Exam Narrative: Independently reviewed vitals signs and nursing notes. General: cooperative, comfortable, in no acute distress, well groomed Head: atraumatic, symmetrical facial expressions Neck: supple Eyes: equal round and reactive, EOMI, conjunctiva normal Nose: nares patent, no rhinorrhea Mouth/Throat: moist mucus membranes Cardiovascular: regular rate and rhythm, hypertensive, 1+ edema in his lower extremities bilaterally, warm extremities, skin is dry, flash Respiratory: normal effort, able to speak in complete sentences, no audible wheezing, stridor, or rales. No retractions or tachypnea. GI: abdomen soft, nontender to palpation, nondistended, no masses, no exquisite tenderness with exam, without guarding or rebound. MSK: moves all extremities, neurovascularly intact, no weakness, normal tone, denies numbness or tingling in extremities currently, radial pulse is 2 + bilaterally, no murmur, sinus rhythm on the monitor Skin: brisk capillary refill, no rash, no erythema Neuro: normal speech and cognition, A&O x3 Psych: mental status is grossly normal, congruent mood, normal affect, pleasant and cooperative Initial Vital Signs Initial Vital Signs: Vital Signs Temperature 96.8 F L 03/13/22 13:00 Pulse Rate 80 03/13/22 13:00 Respiratory Rate 20 03/13/22 13:00 Blood Pressure 198/108 H 03/13/22 13:00 Pulse Oximetry 96 03/13/22 13:00 <Sam Oneal DO - Last Filed: 03/13/22 16:15> Initial Vital Signs Initial Vital Signs: Vital Signs Temperature 96.8 F L 03/13/22 13:00 Pulse Rate 80 03/13/22 13:00 Respiratory Rate 20 03/13/22 13:00 Blood Pressure 198/108 H 03/13/22 13:00 Pulse Oximetry 96 03/13/22 13:00 Course <WILL Sun - Last Filed: 03/13/22 16:01> Orders Ordered: ED Orders 03/13/22 13:11 EKG-12 Lead Stat 03/13/22 13:12 XR chest 1V Stat 03/13/22 13:30 Complete Blood Count AUTO DIFF Stat Comprehensive Metabolic Panel Stat Lipase Stat NT-proBNP (BNP-Adult 18+) Stat Prothrombin Time INR Stat Respiratory Panel (Film Array) Stat Troponin & CK Cardiac Panel Stat Vital Signs Vital signs: Vital Signs - 8 hr 03/13/22 13:00 03/13/22 13:45 03/13/22 13:46 Temperature 96.8 F L Pulse Rate 80 65 61 Respiratory Rate 20 Blood Pressure 198/108 H 142/71 H Pulse Oximetry 96 96 96 03/13/22 13:47 03/13/22 14:00 03/13/22 14:30 Temperature Pulse Rate 61 60 57 L Respiratory Rate 18 Blood Pressure 142/71 H Pulse Oximetry 99 95 95 03/13/22 14:47 Temperature Pulse Rate 60 Respiratory Rate Blood Pressure 131/96 H Pulse Oximetry 97 <Sam Oneal DO - Last Filed: 03/13/22 16:15> Orders Ordered: ED Orders 03/13/22 13:11 EKG-12 Lead Stat 03/13/22 13:12 XR chest 1V Stat 03/13/22 13:30 Complete Blood Count AUTO DIFF Stat Comprehensive Metabolic Panel Stat Lipase Stat NT-proBNP (BNP-Adult 18+) Stat Prothrombin Time INR Stat Respiratory Panel (Film Array) Stat Troponin & CK Cardiac Panel Stat Vital Signs Vital signs: Vital Signs - 8 hr 03/13/22 13:00 03/13/22 13:45 03/13/22 13:46 Temperature 96.8 F L Pulse Rate 80 65 61 Respiratory Rate 20 Blood Pressure 198/108 H 142/71 H Pulse Oximetry 96 96 96 03/13/22 13:47 03/13/22 14:00 03/13/22 14:30 Temperature Pulse Rate 61 60 57 L Respiratory Rate 18 Blood Pressure 142/71 H Pulse Oximetry 99 95 95 03/13/22 14:47 Temperature Pulse Rate 60 Respiratory Rate Blood Pressure 131/96 H Pulse Oximetry 97 MDM - Extremity (Nontraumatic) <SETH SunP - Last Filed: 03/13/22 16:01> Lab Data Result diagrams: 03/13/22 13:30 03/13/22 13:30 Labs: Lab Results 03/13/22 03/13/22 03/13/22 Range/Units 13:30 13:30 13:30 WBC 5.8 (4.5-11.0) X10^3/uL RBC 4.71 (4.5-5.9) X10^6/uL Hgb 14.7 (13.5-17.5) g/dL Hct 42.8 (41-53) % MCV 90.9 (80-100) fL MCH 31.3 (26-34) PG MCHC 34.4 (30-36) % RDW 13.7 (11.6-14.8) % Plt Count 142 L (150-400) X10^3/uL Neut % (Auto) 56.0 (50-75) % Lymph % (Auto) 28.0 (25-40) % Wythe % (Auto) 7.5 (3-14) % Eos % (Auto) 7.4 H (2-4) % Baso % (Auto) 1.1 (0-2) % Neut # (Auto) 3300 (2901-9261) /uL Lymph # (Auto) 1600 (0003-2737) /uL Wythe # (Auto) 400 (0-900) /uL Eos # (Auto) 400 (0-450) /uL Baso # (Auto) 100 (0-100) /uL PT 13.2 H (10.1-12.7) SECONDS INR 1.2 (0.9-1.3) Sodium (137-145) mmol/L Potassium (3.4-5.1) mmol/L Chloride (98-107) mmol/L Carbon Dioxide (22-32) mmol/L BUN (9-20) mg/dL Creatinine (0.66-1.25) mg/dL Estimated GFR (>60) mL/min BUN/Creatinine Ratio (6-22) Glucose (80-110) mg/dL Calcium (8.4-10.2) mg/dL Total Bilirubin (0.2-1.3) mg/dL AST (17-59) IU/L ALT (<50) IU/L Alkaline Phosphatase (38-126) U/L Total Creatine Kinase (55-170) U/L CK-MB (CK-2) CK-MB (CK-2) Rel Index Troponin I (0.01-0.034) ng/mL NT-Pro-B Natriuret Pep 75 (<450) pg/mL Total Protein (6.3-8.2) g/dL Albumin (3.5-5.0) g/dL Globulin (1.7-4.1) g/dL Albumin/Globulin Ratio (1.0-2.8) Lipase (23-300) U/L Chlamy pneumoniae PCR (Not Detect) Adenovirus (PCR) (Not Detect) B. pertussis DNA (PCR) (Not Detecte) B.parapertussis DNA PCR (Not Detecte) Coronavirus OC43 (PCR) (Not Detect) Coronavirus HKU1 (PCR) (Not Detect) Coronavirus 229E (PCR) (Not Detect) SARS-CoV-2 (PCR) (Not Detecte) Coronavirus NL63 (PCR) (Not Detect) Human Metapneumovir PCR (Not Detect) Influenza Type A (PCR) (Not Detect) Influenza Type B (PCR) (Not Detect) M. pneumoniae (PCR) (Not Detect) Parainfluenza 1 (PCR) (Not Detect) Parainfluenza 2 (PCR) (Not Detect) Parainfluenza 3 (PCR) (Not Detect) Parainfluenza 4 (PCR) (Not Detect) RSV (PCR) (Not Detect) Entero/Rhino (PCR) (Not Detect) 03/13/22 03/13/22 Range/Units 13:30 13:30 WBC (4.5-11.0) X10^3/uL RBC (4.5-5.9) X10^6/uL Hgb (13.5-17.5) g/dL Hct (41-53) % MCV (80-100) fL MCH (26-34) PG MCHC (30-36) % RDW (11.6-14.8) % Plt Count (150-400) X10^3/uL Neut % (Auto) (50-75) % Lymph % (Auto) (25-40) % Wythe % (Auto) (3-14) % Eos % (Auto) (2-4) % Baso % (Auto) (0-2) % Neut # (Auto) (5342-8031) /uL Lymph # (Auto) (8535-9888) /uL Wythe # (Auto) (0-900) /uL Eos # (Auto) (0-450) /uL Baso # (Auto) (0-100) /uL PT (10.1-12.7) SECONDS INR (0.9-1.3) Sodium 138 (137-145) mmol/L Potassium 4.2 (3.4-5.1) mmol/L Chloride 104 (98-107) mmol/L Carbon Dioxide 26 (22-32) mmol/L BUN 21 H (9-20) mg/dL Creatinine 1.17 (0.66-1.25) mg/dL Estimated GFR > 60 (>60) mL/min BUN/Creatinine Ratio 17.9 (6-22) Glucose 108 (80-110) mg/dL Calcium 8.9 (8.4-10.2) mg/dL Total Bilirubin 0.7 (0.2-1.3) mg/dL AST 34 (17-59) IU/L ALT 35 (<50) IU/L Alkaline Phosphatase 83 (38-126) U/L Total Creatine Kinase 86 (55-170) U/L CK-MB (CK-2) TNP CK-MB (CK-2) Rel Index TNP Troponin I < 0.012 (0.01-0.034) ng/mL NT-Pro-B Natriuret Pep (<450) pg/mL Total Protein 7.7 (6.3-8.2) g/dL Albumin 4.5 (3.5-5.0) g/dL Globulin 3.2 (1.7-4.1) g/dL Albumin/Globulin Ratio 1.4 (1.0-2.8) Lipase 64 (23-300) U/L Chlamy pneumoniae PCR Not detected (Not Detect) Adenovirus (PCR) Not detected (Not Detect) B. pertussis DNA (PCR) Not detected (Not Detecte) B.parapertussis DNA PCR Not detected (Not Detecte) Coronavirus OC43 (PCR) Not detected (Not Detect) Coronavirus HKU1 (PCR) Not detected (Not Detect) Coronavirus 229E (PCR) Not detected (Not Detect) SARS-CoV-2 (PCR) Not detected (Not Detecte) Coronavirus NL63 (PCR) Not detected (Not Detect) Human Metapneumovir PCR Not detected (Not Detect) Influenza Type A (PCR) Not detected (Not Detect) Influenza Type B (PCR) Not detected (Not Detect) M. pneumoniae (PCR) Not detected (Not Detect) Parainfluenza 1 (PCR) Not detected (Not Detect) Parainfluenza 2 (PCR) Not detected (Not Detect) Parainfluenza 3 (PCR) Not detected (Not Detect) Parainfluenza 4 (PCR) Not detected (Not Detect) RSV (PCR) Not detected (Not Detect) Entero/Rhino (PCR) Not detected (Not Detect) Imaging Data Chest x-ray: Radiologist's Impression: PROCEDURE:? XR CHEST 1V ? INDICATIONS:? left arm numbness, SOB ? TECHNIQUE:? One view of the chest was acquired.? ? COMPARISON:? [facility], CR, XR CHEST 2V, 08/19/2019, 13:09. ? FINDINGS:? ? Surgical changes and devices:? Cholecystectomy clips.? ? Lungs and pleura:? Linear density at the left lung base favoring atelectasis.? No focal consolidation.? No pleural effusions or pneumothorax.? ? Mediastinum:? Mediastinal contours appear normal.? Heart size is normal.? ? Bones and chest wall:? No suspicious bony lesions.? Overlying soft tissues appear unremarkable.? ? IMPRESSION:? ? Linear density at the 3 left lung base favoring atelectasis.? Otherwise, no evidence of an acute cardiopulmonary abnormality. ? ? Dictated by: Kwadwo Tom D.O. on 03/13/2022 at 12:48 ? ? Approved by: Kwadwo Tom D.O. on 03/13/2022 at 12:49 ? MDM Narrative Medical decision making narrative: This is a 76-year-old male with history of hypertension exertional angina hyperlipidemia, with a left wrist carpal tunnel surgery and September 2021 who presents to the emergency department today for left arm numbness and tingling he has experienced on long walks. He states that he had carpal tunnel surgery in September 2021 of his left wrist, he has had this numbness and tingling in his wrist in the past but he states that now he is having some symptoms which go up his arm but they go way as soon as he rests his arm or put his hand in his pocket. He denies any weakness, denies any shoulder pain, back pain, neck pain, shortness of breath, angina, chest pain, difficulty breathing, or any new symptoms of any kind. Patient's is concerned that patient may have a stroke or a cardiac event, and wanted to rule out any dangerous possibilities. Patient denies any other symptoms, states that he does not have any numbness or tingling in his left arm at this time. Lab work is grossly unremarkable, he does not have any leukocytosis, electrolyte abnormalities, elevation in any cardiac enzymes, his BNP was 75, no elevation in liver enzymes, lipase is 64, respiratory panel is negative for all tested viruses, chest x-ray reports a linear density in the left lung base favoring atelectasis otherwise no evidence of acute cardiopulmonary abnormality. Breath sounds are clear throughout, patient's EKG shows sinus bradycardia with a normal axis and without any ST changes or ectopy. Patient takes amlodipine daily, endorses seasonal allergies, does not take any medication for this. No abnormal finding on workup today, patient is recommended to follow-up with his primary care provider because his yearly appointment is coming due, and discuss his shortness of breath with exertion which might be increasing, and his is worried about patient shuffling around at times and about potential cognitive decline. Multiple causes his symptoms were considered including FL, PE, pneumothorax, pneumonia, aortic dissection, and pleurisy. Patient reports no radiation, no diaphoresis, no provocation with exertion, and no vomiting. Patient is appropriate and amenable to discharge home. Vital signs are stable on repeat examination is unremarkable. Patient has been informed of results. Patient has been given strict return to ER precautions for any new or worsening symptoms. Patient understands to follow up closely with outpatient providers as instructed. Patient understands plan and agrees to discharge home. All questions and concerns answered at this time. <aSm Oneal, DO - Last Filed: 03/13/22 16:15> Lab Data Labs: Lab Results 03/13/22 03/13/22 03/13/22 Range/Units 13:30 13:30 13:30 WBC 5.8 (4.5-11.0) X10^3/uL RBC 4.71 (4.5-5.9) X10^6/uL Hgb 14.7 (13.5-17.5) g/dL Hct 42.8 (41-53) % MCV 90.9 (80-100) fL MCH 31.3 (26-34) PG MCHC 34.4 (30-36) % RDW 13.7 (11.6-14.8) % Plt Count 142 L (150-400) X10^3/uL Neut % (Auto) 56.0 (50-75) % Lymph % (Auto) 28.0 (25-40) % Wythe % (Auto) 7.5 (3-14) % Eos % (Auto) 7.4 H (2-4) % Baso % (Auto) 1.1 (0-2) % Neut # (Auto) 3300 (4116-9557) /uL Lymph # (Auto) 1600 (5304-4518) /uL Wythe # (Auto) 400 (0-900) /uL Eos # (Auto) 400 (0-450) /uL Baso # (Auto) 100 (0-100) /uL PT 13.2 H (10.1-12.7) SECONDS INR 1.2 (0.9-1.3) Sodium (137-145) mmol/L Potassium (3.4-5.1) mmol/L Chloride (98-107) mmol/L Carbon Dioxide (22-32) mmol/L BUN (9-20) mg/dL Creatinine (0.66-1.25) mg/dL Estimated GFR (>60) mL/min BUN/Creatinine Ratio (6-22) Glucose (80-110) mg/dL Calcium (8.4-10.2) mg/dL Total Bilirubin (0.2-1.3) mg/dL AST (17-59) IU/L ALT (<50) IU/L Alkaline Phosphatase (38-126) U/L Total Creatine Kinase (55-170) U/L CK-MB (CK-2) CK-MB (CK-2) Rel Index Troponin I (0.01-0.034) ng/mL NT-Pro-B Natriuret Pep 75 (<450) pg/mL Total Protein (6.3-8.2) g/dL Albumin (3.5-5.0) g/dL Globulin (1.7-4.1) g/dL Albumin/Globulin Ratio (1.0-2.8) Lipase (23-300) U/L Chlamy pneumoniae PCR (Not Detect) Adenovirus (PCR) (Not Detect) B. pertussis DNA (PCR) (Not Detecte) B.parapertussis DNA PCR (Not Detecte) Coronavirus OC43 (PCR) (Not Detect) Coronavirus HKU1 (PCR) (Not Detect) Coronavirus 229E (PCR) (Not Detect) SARS-CoV-2 (PCR) (Not Detecte) Coronavirus NL63 (PCR) (Not Detect) Human Metapneumovir PCR (Not Detect) Influenza Type A (PCR) (Not Detect) Influenza Type B (PCR) (Not Detect) M. pneumoniae (PCR) (Not Detect) Parainfluenza 1 (PCR) (Not Detect) Parainfluenza 2 (PCR) (Not Detect) Parainfluenza 3 (PCR) (Not Detect) Parainfluenza 4 (PCR) (Not Detect) RSV (PCR) (Not Detect) Entero/Rhino (PCR) (Not Detect) 03/13/22 03/13/22 Range/Units 13:30 13:30 WBC (4.5-11.0) X10^3/uL RBC (4.5-5.9) X10^6/uL Hgb (13.5-17.5) g/dL Hct (41-53) % MCV (80-100) fL MCH (26-34) PG MCHC (30-36) % RDW (11.6-14.8) % Plt Count (150-400) X10^3/uL Neut % (Auto) (50-75) % Lymph % (Auto) (25-40) % Wythe % (Auto) (3-14) % Eos % (Auto) (2-4) % Baso % (Auto) (0-2) % Neut # (Auto) (1754-7907) /uL Lymph # (Auto) (1097-4627) /uL Wythe # (Auto) (0-900) /uL Eos # (Auto) (0-450) /uL Baso # (Auto) (0-100) /uL PT (10.1-12.7) SECONDS INR (0.9-1.3) Sodium 138 (137-145) mmol/L Potassium 4.2 (3.4-5.1) mmol/L Chloride 104 (98-107) mmol/L Carbon Dioxide 26 (22-32) mmol/L BUN 21 H (9-20) mg/dL Creatinine 1.17 (0.66-1.25) mg/dL Estimated GFR > 60 (>60) mL/min BUN/Creatinine Ratio 17.9 (6-22) Glucose 108 (80-110) mg/dL Calcium 8.9 (8.4-10.2) mg/dL Total Bilirubin 0.7 (0.2-1.3) mg/dL AST 34 (17-59) IU/L ALT 35 (<50) IU/L Alkaline Phosphatase 83 (38-126) U/L Total Creatine Kinase 86 (55-170) U/L CK-MB (CK-2) TNP CK-MB (CK-2) Rel Index TNP Troponin I < 0.012 (0.01-0.034) ng/mL NT-Pro-B Natriuret Pep (<450) pg/mL Total Protein 7.7 (6.3-8.2) g/dL Albumin 4.5 (3.5-5.0) g/dL Globulin 3.2 (1.7-4.1) g/dL Albumin/Globulin Ratio 1.4 (1.0-2.8) Lipase 64 (23-300) U/L Chlamy pneumoniae PCR Not detected (Not Detect) Adenovirus (PCR) Not detected (Not Detect) B. pertussis DNA (PCR) Not detected (Not Detecte) B.parapertussis DNA PCR Not detected (Not Detecte) Coronavirus OC43 (PCR) Not detected (Not Detect) Coronavirus HKU1 (PCR) Not detected (Not Detect) Coronavirus 229E (PCR) Not detected (Not Detect) SARS-CoV-2 (PCR) Not detected (Not Detecte) Coronavirus NL63 (PCR) Not detected (Not Detect) Human Metapneumovir PCR Not detected (Not Detect) Influenza Type A (PCR) Not detected (Not Detect) Influenza Type B (PCR) Not detected (Not Detect) M. pneumoniae (PCR) Not detected (Not Detect) Parainfluenza 1 (PCR) Not detected (Not Detect) Parainfluenza 2 (PCR) Not detected (Not Detect) Parainfluenza 3 (PCR) Not detected (Not Detect) Parainfluenza 4 (PCR) Not detected (Not Detect) RSV (PCR) Not detected (Not Detect) Entero/Rhino (PCR) Not detected (Not Detect) Discharge Plan Departure Patient Disposition: Home Clinical Impression: Left arm numbness Instructions: DI for Numbness/Tingling Activity Restrictions/Additional Instructions: *You have been diagnosed with left arm numbness without evidence of cardiac cause or other emergent or dangerous cause. Your lab work overall looks great, it is improved since the last time you had your blood drawn in April 2021 in many ways, nothing was in the red and all of the values were normal. Your chest x-ray does not show any sign of pneumonia. Your lab work suggests that you might be fighting some allergies, this is common this time of year. He do not have any signs of heart failure on your lab work today, your cardiac workup was very reassuring without any abnormalities. Please ensure you are staying well hydrated, if you are having congestion, please use Flonase morning and night, and you may continue Claritin D or try Zyrtec as needed for your symptoms. Your respiratory panel is negative for COVID, influenza, and other viruses which might cause fatigue. If you are noticing that you become fatigued more easily than before, please follow-up with your compressor station chief engineer about this. Today your everything looks pretty good so I think your arm numbness is most likely a musculoskeletal problem which might be related to activity, swelling in your fingers after hanging and walking for a while, you may try to put your arm in a pocket and see if this prevents it from going numb. You might have some arthritis in her shoulder which is contributing to this. Please follow-up with your primary care provider and ask for referral to physical therapy, follow-up with your compressor station chief engineer as needed, thank you for coming in and being evaluated. It does not appear to be anything dangerous today. Your numbness and tingling goes away so this is also very reassuring. I hope that you feel better soon, I have sent some Flonase and Zyrtec D to your pharmacy. It appears that your yearly appointment is due in May with Dr. Vega, please schedule an appointment for follow-up from your emergency department to discuss these things. *What to do: *Please continue to take your regular medications as directed. [ x] New medication prescriptions sent to your pharmacy: [ [facility]] [ ] New medication written as a paper prescription [ ] No new medications given *Please follow up with your primary care provider in 2-3 days, call for an appointment. Let them know you were seen in the Emergency Department and that we asked that you be seen for follow-up. We will electronically transmit a record of today's note if your PCP is in our system *If you do not have a primary care provider please contact [phone] to establish care with one of the [facility] primary care providers. *Return to Emergency Department if you should have any new, worsening or concerning symptoms, such as [fever greater than 101F, chills, worsening pain, persistent vomiting or other bothersome symptoms] Prescriptions: New fluticasone propionate 50 mcg/actuation spray,suspension 1 spray intranasal BID PRN (Reason: nasal congestion) Qty: 16 0RF Rx Instructions: administer into each nostril cetirizine-pseudoephedrine [Zyrtec-D] 5-120 mg tablet extended release 12 hr 1 tab PO BID Qty: 20 0RF No Action indomethacin 50 mg capsule 50 mg PO BID PRN (Reason: gout pain) Qty: 30 0RF Rx Instructions: administer with food or milk amlodipine 5 mg tablet 5 mg PO DAILY Qty: 90 1RF Rx Instructions: APPT/YEARLY DUE IN 05/2022 WITH [facility]. PLEASE CALL TO SET UP FUTURE APPT. THANK YOU 01/26/22 Referrals: Deshawn Vega MD [Primary Care Provider] - Visit Report Forms: Patient Portal/API <Sam nOeal, DO - Last Filed: 03/13/22 16:15> Cosign ED Attending Cosignature Attestation: Dr Oneal Co-Sign Statement: I was available for consultation during this patient's emergency department visit. This chart is signed by myself for administrative purposes only. I did not have direct contact with this patient during this visit. They were seen independently by the APC.
[2022-03-13 13:44] LABS: Add Manual Diff / Slide Review NO; Basophils Absolute Auto 100 /uL (0-100); Basophils Percent Auto 1.1 % (0-2); Eosinophils Absolute Auto 400 /uL (0-450); Eosinophils Percent Auto 7.4 % (2-4); Hematocrit 42.8 % (41-53); Hemoglobin 14.7 g/dL (13.5-17.5); Lymphocytes Absolute Auto 1600 /uL (1100-4500); Mean Corpuscular HGB Conc 34.4 % (30-36); Mean Corpuscular Hemoglobin 31.3 PG (26-34); Mean Corpuscular Volume 90.9 fL (80-100); Monocytes Absolute Auto 400 /uL (0-900); Monocytes Percent Auto 7.5 % (3-14); Neutrophils Absolute Auto 3300 /uL (1500-7000); Platelet Count 142 X10^3/uL (150-400); Red Blood Cell Count 4.71 X10^6/uL (4.5-5.9); Red Cell Distribution Width 13.7 % (11.6-14.8); White Blood Cell Count 5.8 X10^3/uL (4.5-11.0)
[2022-03-13 13:52] LABS: INR 1.2 (0.9-1.3); Prothrombin Time 13.2 SECONDS (10.1-12.7)
[2022-03-13 13:56] LABS: Alanine Aminotransferase 35 IU/L (<50); Albumin 4.5 g/dL (3.5-5.0); Albumin Globulin Ratio 1.4 (1.0-2.8); Alkaline Phosphatase 83 U/L (38-126); Aspartate Aminotransferase 34 IU/L (17-59); BUN Creatinine Ratio 17.9 (6-22); Bilirubin Total 0.7 mg/dL (0.2-1.3); Blood Urea Nitrogen 21 mg/dL (9-20); Calcium 8.9 mg/dL (8.4-10.2); Carbon Dioxide 26 mmol/L (22-32); Chloride 104 mmol/L (98-107); Creatine Kinase 86 U/L (55-170); Estimated Glomerular Filt Rate > 60 mL/min (>60); Globulin 3.2 g/dL (1.7-4.1); Glucose 108 mg/dL (80-110); HEMOLYSIS < 15 (0-50); Lipase 64 U/L (23-300); Potassium 4.2 mmol/L (3.4-5.1); Sodium 138 mmol/L (137-145); Total Protein 7.7 g/dL (6.3-8.2)
[2022-03-13 14:05] LABS: NT-proBNP (BNP-Adult 18+) 75 pg/mL (<450)
[2022-03-13 14:07] LABS: Troponin I < 0.012 ng/mL (0.01-0.034)
[2022-03-13 14:36] LABS: Adenovirus Not Detected (Not Detect); B. parapertussis Not Detected (Not Detecte); Bordetella pertussis Not Detected (Not Detecte); Chlamydophila pneumoniae Not Detected (Not Detect); Coronavirus 229E Not Detected (Not Detect); Coronavirus HKU1 Not Detected (Not Detect); Coronavirus NL 63 Not Detected (Not Detect); Coronavirus OC43 Not Detected (Not Detect); Human Metapneumovirus Not Detected (Not Detect); Human Rhinovirus/Enterovirus Not Detected (Not Detect); Influenza A Not Detected (Not Detect); Influenza B Not Detected (Not Detect); Mycoplasma pneumoniae Not Detected (Not Detect); Parainfluenza Virus 1 Not Detected (Not Detect); Parainfluenza Virus 2 Not Detected (Not Detect); Parainfluenza Virus 3 Not Detected (Not Detect); Parainfluenza Virus 4 Not Detected (Not Detect); Respiratory Syncytial Virus Not Detected (Not Detect); SARS- CoV-2 Not Detected (Not Detecte)
== END 2022-03-13 14:57 | disposition home or self-care (01) ==
PROVIDERS: Emergency Provider Nurse Practitioner Critical Care Medicine; PCP Family Medicine
DX: R20.0 Anesthesia of skin (principal); R06.02 Shortness of breath; R07.9 Chest pain, unspecified; Z20.822 Contact with and (suspected) exposure to COVID-19
CPT/HCPCS: 36415; 71045; 80053; 82550; 83690; 83880; 84484; 85025; 85610; 87633; 93005; 93010; 99284

== ENCOUNTER → 2022-04-04 15:46 | Outpatient (CLI) | payer MEDICARE, OTHER, SELFPAY ==
--- NOTE | 2022-04-04 15:48 | DI.RAD.S_ITS ---
PROCEDURE: XR CHEST 2V INDICATIONS: lower extremity swelling TECHNIQUE: 2 views of the chest were acquired. COMPARISON: [facility], CR, XR CHEST 1V, 03/13/2022, 13:19. FINDINGS: Surgical changes and devices: None. Lungs and pleura: Lungs are clear. No pleural effusions or pneumothorax. Mediastinum: Mediastinal contours are normal. Heart size is normal. Bones and chest wall: No suspicious bony abnormalities. Soft tissues appear unremarkable. IMPRESSION: Stable radiographic evaluation of the chest without acute cardiopulmonary abnormalities or focal airspace disease. Dictated by: Luigi De La Paz M.D. on 04/04/2022 at 16:57 Approved by: Luigi De La Paz M.D. on 04/04/2022 at 16:58
== END ==
PROVIDERS: PCP Family Medicine; Referring Provider Family Medicine; Visit Provider Family Medicine
DX: R60.0 Localized edema (principal); D69.6 Thrombocytopenia, unspecified; E78.2 Mixed hyperlipidemia; R07.9 Chest pain, unspecified; I10 Essential (primary) hypertension
CPT/HCPCS: 71046

== ENCOUNTER → 2022-04-06 07:47 | Outpatient (CLI) | payer MEDICARE, OTHER, SELFPAY ==
[2022-04-06 08:46] LABS: Add Manual Diff / Slide Review NO; Basophils Absolute Auto 100 /uL (0-100); Basophils Percent Auto 0.9 % (0-2); Eosinophils Absolute Auto 400 /uL (0-450); Eosinophils Percent Auto 5.3 % (2-4); Hematocrit 41.2 % (41-53); Lymphocytes Absolute Auto 1800 /uL (1100-4500); Lymphocytes Percent Auto 26.3 % (25-40); Mean Corpuscular HGB Conc 34.1 % (30-36); Mean Corpuscular Volume 91.1 fL (80-100); Monocytes Absolute Auto 400 /uL (0-900); Monocytes Percent Auto 6.6 % (3-14); Neutrophils Absolute Auto 4100 /uL (1500-7000); Neutrophils Percent Auto 60.9 % (50-75); Platelet Count 142 X10^3/uL (150-400); Red Blood Cell Count 4.52 X10^6/uL (4.5-5.9); Red Cell Distribution Width 13.4 % (11.6-14.8); White Blood Cell Count 6.7 X10^3/uL (4.5-11.0)
[2022-04-06 09:07] LABS: Creatinine Urine Random 114.1 mg/dL
[2022-04-06 09:10] LABS: Alanine Aminotransferase 35 IU/L (<50); Albumin 4.2 g/dL (3.5-5.0); Albumin Globulin Ratio 1.6 (1.0-2.8); Alkaline Phosphatase 78 U/L (38-126); Aspartate Aminotransferase 31 IU/L (17-59); BUN Creatinine Ratio 16.4 (6-22); Bilirubin Total 0.8 mg/dL (0.2-1.3); Blood Urea Nitrogen 21 mg/dL (9-20); Calcium 8.9 mg/dL (8.4-10.2); Carbon Dioxide 30 mmol/L (22-32); Chloride 103 mmol/L (98-107); Cholesterol 176 mg/dL (140-199); Estimated Glomerular Filt Rate 57 mL/min (>60); Globulin 2.6 g/dL (1.7-4.1); Glucose 99 mg/dL (80-110); HDL Cholesterol 36 mg/dL (40-60); HEMOLYSIS < 15 (0-50); LDL Cholesterol Calculated 120 mg/dL (<100); Potassium 4.2 mmol/L (3.4-5.1); Sodium 139 mmol/L (137-145); Total Protein 6.8 g/dL (6.3-8.2); Triglycerides 101 mg/dL (35-150)
[2022-04-06 09:15] LABS: NT-proBNP (BNP-Adult 18+) 75 pg/mL (<450)
[2022-04-06 09:36] LABS: Prostate Specific Antigen Scrn 0.425 ng/mL (0.1-4.0)
[2022-04-06 09:37] LABS: Microalbumi Creatinin Ratio Ur 6.1 ug/mg CR (<30); Microalbumin Urine Random 0.7 mg/dL (0-1.6)
== END ==
PROVIDERS: PCP Family Medicine; Referring Provider Family Medicine; Visit Provider Family Medicine
DX: E78.2 Mixed hyperlipidemia (principal); R07.9 Chest pain, unspecified; Z12.5 Encounter for screening for malignant neoplasm of prostate; D69.6 Thrombocytopenia, unspecified; I10 Essential (primary) hypertension; R06.02 Shortness of breath
CPT/HCPCS: 36415; 80053; 80061; 82043; 82570; 83880; 85025; G0103

== ENCOUNTER → 2022-07-12 13:43 | Outpatient (CLI) | payer MEDICARE, OTHER, SELFPAY ==
[2022-07-12 14:33] LABS: Add Manual Diff / Slide Review NO; Basophils Absolute Auto 0 /uL (0-100); Basophils Percent Auto 0.7 % (0-2); Eosinophils Absolute Auto 500 /uL (0-450); Eosinophils Percent Auto 7.7 % (2-4); Hematocrit 41.4 % (41-53); Hemoglobin 13.8 g/dL (13.5-17.5); Lymphocytes Absolute Auto 1700 /uL (1100-4500); Lymphocytes Percent Auto 26.2 % (25-40); Mean Corpuscular HGB Conc 33.4 % (30-36); Mean Corpuscular Hemoglobin 30.6 PG (26-34); Mean Corpuscular Volume 91.6 fL (80-100); Monocytes Absolute Auto 500 /uL (0-900); Monocytes Percent Auto 7.3 % (3-14); Neutrophils Absolute Auto 3900 /uL (1500-7000); Neutrophils Percent Auto 58.1 % (50-75); Platelet Count 145 X10^3/uL (150-400); Red Blood Cell Count 4.52 X10^6/uL (4.5-5.9); Red Cell Distribution Width 14.4 % (11.6-14.8); White Blood Cell Count 6.7 X10^3/uL (4.5-11.0)
[2022-07-12 14:57] LABS: Alanine Aminotransferase 40 IU/L (<50); Albumin 4.3 g/dL (3.5-5.0); Albumin Globulin Ratio 1.5 (1.0-2.8); Alkaline Phosphatase 79 U/L (38-126); Aspartate Aminotransferase 33 IU/L (17-59); BUN Creatinine Ratio 16.4 (6-22); Bilirubin Total 0.4 mg/dL (0.2-1.3); Blood Urea Nitrogen 20 mg/dL (9-20); Calcium 8.9 mg/dL (8.4-10.2); Carbon Dioxide 29 mmol/L (22-32); Chloride 103 mmol/L (98-107); Estimated Glomerular Filt Rate > 60 mL/min (>60); Globulin 2.8 g/dL (1.7-4.1); Glucose 89 mg/dL (80-110); HEMOLYSIS < 15 (0-50); Potassium 4.5 mmol/L (3.4-5.1); Sodium 141 mmol/L (137-145); Total Protein 7.1 g/dL (6.3-8.2)
== END ==
PROVIDERS: PCP Family Medicine; Referring Provider Family Medicine; Visit Provider Family Medicine
DX: E78.2 Mixed hyperlipidemia (principal); I10 Essential (primary) hypertension; R79.89 Other specified abnormal findings of blood chemistry
CPT/HCPCS: 36415; 80053; 85025

== ENCOUNTER → 2022-09-17 07:50 | Outpatient (CLI) | payer MEDICARE, OTHER, SELFPAY ==
[2022-09-17 09:47] LABS: Add Manual Diff / Slide Review NO; Basophils Absolute Auto 0 /uL (0-100); Basophils Percent Auto 0.5 % (0-2); Eosinophils Absolute Auto 400 /uL (0-450); Eosinophils Percent Auto 7.1 % (2-4); Hematocrit 42.2 % (41-53); Hemoglobin 14.2 g/dL (13.5-17.5); Lymphocytes Absolute Auto 1500 /uL (1100-4500); Lymphocytes Percent Auto 24.2 % (25-40); Mean Corpuscular HGB Conc 33.7 % (30-36); Mean Corpuscular Hemoglobin 30.7 PG (26-34); Mean Corpuscular Volume 91.3 fL (80-100); Monocytes Absolute Auto 300 /uL (0-900); Monocytes Percent Auto 5.4 % (3-14); Neutrophils Absolute Auto 3900 /uL (1500-7000); Neutrophils Percent Auto 62.8 % (50-75); Platelet Count 140 X10^3/uL (150-400); Red Blood Cell Count 4.63 X10^6/uL (4.5-5.9); Red Cell Distribution Width 14.4 % (11.6-14.8); White Blood Cell Count 6.2 X10^3/uL (4.5-11.0)
[2022-09-17 10:14] LABS: INR 1.1 (0.9-1.3)
[2022-09-17 10:16] LABS: PTT Partial Thromboplastin Tim 32 SECONDS (26-36)
== END ==
PROVIDERS: Internal Medicine; PCP Family Medicine; Referring Provider Family Medicine; Visit Provider Family Medicine
DX: D69.6 Thrombocytopenia, unspecified (principal); R04.0 Epistaxis
CPT/HCPCS: 36415; 85025; 85610; 85730

== ENCOUNTER → 2022-11-23 13:44 | Outpatient (CLI) | payer MEDICARE, OTHER, SELFPAY ==
--- NOTE | 2022-11-23 | DI.NM.S_ITS ---
PROCEDURE: NM NATASHA PERF SPECT REST & STR Rest and exercise myocardial perfusion SPECT with gated imaging and ejection fraction RADIOPHARMACEUTICAL: 27.5 mCi Tc-99m sestamibi IV at rest and 26.5 mCi Tc-99m sestamibi IV at peak exercise. A two day-protocol was performed. INDICATIONS: Chest pain, unspecified TECHNIQUE: Radiopharmaceutical was injected at peak stress test, and also at rest. SPECT images were obtained. SPECT myocardial perfusion images were displayed in short axis, horizontal long axis, and vertical long axis views. Gated images were reviewed using Truminim software. COMPARISON: None. CARDIAC STRESS: A standard Herminio treadmill exercise tolerance test was performed by the patient under the supervision of an attending staff. The patient exercised for 7 minutes and 37 seconds; functional aerobic impairment (ANGELA) is -38%. Hemodynamic data: There is normal heart rate response to exercise stress. Patient achieved 96% of maximum predicted heart rate at peak exercise. Hypertensive response to exercise (resting BP 132/82mmHg, max BP 220/98mmHg). Symptoms: Patient denied chest pain during exercise. EKG: No diagnostic EKG changes of ischemia; frequent PVCs with exercise and during recovery. FINDINGS: Raw data: There is good myocardial labeling by radiotracer. No significant motion artifacts. Txmz-fm-tggsa ratio is 0.37 (normal is less than 0.38 for sestamibi tracer, and less than 0.50 for thallium tracer). Left ventricle function: Gated images demonstrate normal left ventricle wall thickening. No segmental wall motion abnormality. No transient ischemic dilation; TID is 1.02 (normal less than 1.3). The left ventricle resting end-diastolic volume is 101 mL. Left ventricle stress ejection fraction is 79%; normal values are above 45%. Myocardial perfusion: No fixed or reversible perfusion defects on stress prone imaging. IMPRESSION: Low risk, normal treadmill nuclear stress test. Frequent PVCs during exercise and recovery. 1) No perfusion evidence of ischemia or infarction. 2) Normal left ventricular size, wall motion, and systolic function (EF post stress 79%). 3) No ST changes with exercise or during recovery. 4) Frequent PVCs with exercise and during recovery. 5) No angina during the study. 6) Very good exercise tolerance (8.5 METs, ANGELA -38%). Target heart rate achieved. 7) Hypertensive response to exercise (resting BP 132/82mmHg, max BP 220/98mmHg). 8) Compared to the nuclear stress test done 05/04/2017, no significant change in perfusion images. Dictated by: Esther Kern MD on 11/25/2022 at 16:40 Approved by: Esther Kern MD on 11/25/2022 at 16:46
--- NOTE | 2022-11-23 13:53 | DI.ECHO.S_ITS ---
Interpretation Summary The ejection fraction is estimated to be 65-70%. Diastolic parameters suggest probable normal left ventricular diastolic function and normal filling pressures. The right ventricle is normal in size and function. No significant valvular abnormalities. Unable to estimate PASP. Compared to the prior study dated 08/18/2021, there is slightly less mitral regurgitation. Procedure: A two-dimensional transthoracic echocardiogram with color flow and Doppler was performed. The study quality was technically adequate. Comparison is made with the echocardiogram of 08/18/2021. The patient was in sinus bradycardia with heart rates between 54-58 bpm during the exam. Left Ventricle: The left ventricle is normal in size and wall thickness. The ejection fraction is estimated to be 65-70%. Diastolic parameters suggest probable normal left ventricular diastolic function and normal filling pressures. Right Ventricle: The right ventricle is normal in size and function. Atria: The left atrial size is normal. Right atrial size is normal. There is no Doppler evidence for an interatrial shunt. Mitral Valve: The mitral valve leaflets appear mildly thickened, but open well. There is trace mitral regurgitation. Aortic Valve: The aortic valve is trileaflet. The aortic valve opens well. There is no aortic valve stenosis. No aortic regurgitation is present. Tricuspid Valve: The tricuspid valve is normal in structure and function. There is a trace or physiologic amount of tricuspid regurgitation. Pulmonary artery pressures cannot be estimated because of the lack of a measurable TR jet velocity. Pulmonic Valve: The pulmonic valve leaflets are thin and pliable; valve motion is normal. There is a trace or physiologic amount of pulmonic regurgitation. Great Vessels: The aortic root is normal size. The ascending aorta is at the upper limits of normal in size. The IVC is of normal diameter and collapses greater than 50% with a sniff. This suggests a low right atrial pressure of 3 mm Hg. Pericardium/ Pleura There is no pericardial effusion. There is no pleural effusion. MMode/2D Measurements & Calculations LVIDd: 5.1 cm LVOT diam: 2.0 cm LVIDs: 3.2 cm Ao root diam: 3.2 cm FS: 38.2 % asc Aorta Diam: 3.7 cm IVSd: 0.96 cm LVPWd: 0.84 cm LV aaron. diameter/BSA (cm/m^2): 2.3 LV sys. diameter/BSA (cm/m^2): 1.4 LA A2 area: 24.3 cm2 RA long axis: 5.7 cm LA A4 area: 18.8 cm2 RA area: 16.1 cm2 LA length (vol): 6.0 cm RA vol: 38.6 ml LA vol: 65.2 ml RA : 17.4 ml/m2 LA vol index: 29.4 ml/m2 IVC diam: 1.8 cm RVD1 (basal): 4.4 cm RVD2 (mid): 3.2 cm TAPSE: 2.6 cm Doppler Measurements & Calculations Ao V2 max: 145.3 cm/sec LVOT Max Rasheed: 121.6 cm/sec Ao V2 mean: 102.2 cm/sec LV V1 max P.9 mmHg Ao max P.4 mmHg LV V1 VTI: 27.2 cm Ao mean P.6 mmHg STACY(I,D): 2.4 cm2 Ao V2 VTI: 34.6 cm STACY(V,D): 2.5 cm2 sev ratio: 0.79 STACY indexed to BSA (cm^2/m^2): 1.1 MV E max rasheed: 79.3 cm/sec PA V2 max: 76.0 cm/sec MV A max rasheed: 85.3 cm/sec PA V2 mean: 52.0 cm/sec MV E/A: 0.93 PA mean P.2 mmHg Med Peak E' Rasheed: 6.5 cm/sec PA pr(Accel): 36.2 mmHg E/E' med: 12.2 Lat Peak E' Rasheed: 7.8 cm/sec E/E' lat: 10.2 E/e' average: 11.2 MV dec time: 0.24 sec SV(LVOT): 82.6 ml Reading Physician:03:47 PM
== END ==
PROVIDERS: PCP Family Medicine; Referring Provider Internal Medicine Cardiovascular Disease; Visit Provider Internal Medicine Cardiovascular Disease
DX: R07.9 Chest pain, unspecified (principal); R06.02 Shortness of breath
CPT/HCPCS: 78452; 93017; 93306; A9502

== ENCOUNTER → 2023-02-07 09:29 | Outpatient (CLI) | payer MEDICARE, OTHER, SELFPAY ==
[2023-02-07 11:46] LABS: Alanine Aminotransferase 43 IU/L (<50); Albumin 4.3 g/dL (3.5-5.0); Albumin Globulin Ratio 1.8 (1.0-2.8); Alkaline Phosphatase 73 U/L (38-126); Aspartate Aminotransferase 35 IU/L (17-59); BUN Creatinine Ratio 16.3 (6-22); Bilirubin Total 0.8 mg/dL (0.2-1.3); Blood Urea Nitrogen 21 mg/dL (9-20); Carbon Dioxide 31 mmol/L (22-32); Chloride 101 mmol/L (98-107); Cholesterol 159 mg/dL (140-199); Estimated Glomerular Filt Rate 56 mL/min (>60); Globulin 2.4 g/dL (1.7-4.1); Glucose 97 mg/dL (80-110); HDL Cholesterol 36 mg/dL (40-60); HEMOLYSIS < 15 (0-50); LDL Cholesterol Calculated 99 mg/dL (<100); Potassium 5.2 mmol/L (3.4-5.1); Sodium 138 mmol/L (137-145); Total Protein 6.7 g/dL (6.3-8.2); Triglycerides 118 mg/dL (35-150)
[2023-02-07 12:17] LABS: Thyroid Stimulating Hormone 1.57 uIU/mL (0.47-4.68)
[2023-02-07 17:06] LABS: Free T4, Direct Thyroxine 0.86 ng/dL (0.78-2.19)
== END ==
PROVIDERS: PCP Family Medicine; Referring Provider Internal Medicine Cardiovascular Disease; Visit Provider Internal Medicine Cardiovascular Disease
DX: I10 Essential (primary) hypertension (principal); E78.5 Hyperlipidemia, unspecified
CPT/HCPCS: 36415; 80053; 80061; 84439; 84443

== ENCOUNTER → 2023-04-05 06:46 | Outpatient (CLI) | payer MEDICARE, OTHER, SELFPAY ==
[2023-04-05 08:26] LABS: Alanine Aminotransferase 42 IU/L (<50); Albumin 4.2 g/dL (3.5-5.0); Albumin Globulin Ratio 1.6 (1.0-2.8); Alkaline Phosphatase 81 U/L (38-126); Aspartate Aminotransferase 33 IU/L (17-59); BUN Creatinine Ratio 19.6 (6-22); Bilirubin Total 0.4 mg/dL (0.2-1.3); Blood Urea Nitrogen 27 mg/dL (9-20); Calcium 9.3 mg/dL (8.4-10.2); Carbon Dioxide 34 mmol/L (22-32); Chloride 100 mmol/L (98-107); Cholesterol 177 mg/dL (140-199); Estimated Glomerular Filt Rate 52 mL/min (>60); Globulin 2.7 g/dL (1.7-4.1); Glucose 108 mg/dL (80-110); HDL Cholesterol 40 mg/dL (40-60); HEMOLYSIS < 15 (0-50); LDL Cholesterol Calculated 116 mg/dL (<100); Potassium 4.3 mmol/L (3.4-5.1); Sodium 140 mmol/L (137-145); Total Protein 6.9 g/dL (6.3-8.2); Triglycerides 107 mg/dL (35-150)
[2023-04-05 08:55] LABS: TSH w/ Reflex to FT4 1.57 uIU/mL (0.47-4.68)
== END ==
PROVIDERS: PCP Family Medicine; Referring Provider Internal Medicine Cardiovascular Disease; Visit Provider Internal Medicine Cardiovascular Disease
DX: I10 Essential (primary) hypertension (principal); E78.5 Hyperlipidemia, unspecified
CPT/HCPCS: 36415; 80053; 80061; 84443

== ENCOUNTER → 2023-07-05 07:53 | Outpatient (CLI) | payer MEDICARE, OTHER, SELFPAY ==
[2023-07-05 08:45] LABS: BUN Creatinine Ratio 19.3 (6-22); Blood Urea Nitrogen 28 mg/dL (9-20); Calcium 9.5 mg/dL (8.4-10.2); Carbon Dioxide 31 mmol/L (22-32); Chloride 100 mmol/L (98-107); Estimated Glomerular Filt Rate 49 mL/min (>60); Glucose 99 mg/dL (80-110); HEMOLYSIS < 15 (0-50); Potassium 3.8 mmol/L (3.4-5.1); Sodium 138 mmol/L (137-145)
== END ==
PROVIDERS: PCP Family Medicine; Referring Provider Internal Medicine Cardiovascular Disease; Visit Provider Internal Medicine Cardiovascular Disease
DX: I10 Essential (primary) hypertension (principal)
CPT/HCPCS: 36415; 80048

== ENCOUNTER → 2023-08-17 08:07 | Outpatient (CLI) | payer MEDICARE, OTHER, SELFPAY ==
[2023-08-17 09:01] LABS: Add Manual Diff / Slide Review NO; Basophils Absolute Auto 0 /uL (0-100); Basophils Percent Auto 0.7 % (0-2); Eosinophils Absolute Auto 400 /uL (0-450); Eosinophils Percent Auto 6.4 % (2-4); Hemoglobin 14.9 g/dL (13.5-17.5); Lymphocytes Absolute Auto 1500 /uL (1100-4500); Lymphocytes Percent Auto 24.8 % (25-40); Mean Corpuscular HGB Conc 33.8 % (30-36); Mean Corpuscular Volume 91.6 fL (80-100); Monocytes Absolute Auto 500 /uL (0-900); Monocytes Percent Auto 7.9 % (3-14); Neutrophils Absolute Auto 3800 /uL (1500-7000); Neutrophils Percent Auto 60.2 % (50-75); Platelet Count 144 X10^3/uL (150-400); Red Cell Distribution Width 13.8 % (11.6-14.8); White Blood Cell Count 6.3 X10^3/uL (4.5-11.0)
[2023-08-17 09:51] LABS: Alanine Aminotransferase 41 IU/L (<50); Albumin 4.1 g/dL (3.5-5.0); Albumin Globulin Ratio 1.4 (1.0-2.8); Alkaline Phosphatase 68 U/L (38-126); Aspartate Aminotransferase 34 IU/L (17-59); BUN Creatinine Ratio 19.7 (6-22); Bilirubin Total 0.9 mg/dL (0.2-1.3); Blood Urea Nitrogen 27 mg/dL (9-20); Calcium 9.5 mg/dL (8.4-10.2); Carbon Dioxide 29 mmol/L (22-32); Chloride 99 mmol/L (98-107); Cholesterol 189 mg/dL (140-199); Estimated Glomerular Filt Rate 52 mL/min (>60); Globulin 2.9 g/dL (1.7-4.1); Glucose 102 mg/dL (80-110); HDL Cholesterol 36 mg/dL (40-60); HEMOLYSIS < 15 (0-50); LDL Cholesterol Calculated 130 mg/dL (<100); Sodium 137 mmol/L (137-145); Triglycerides 117 mg/dL (35-150)
[2023-08-17 10:02] LABS: Microalbumin Urine Random < 0.6 mg/dL (0-1.6)
[2023-08-17 10:21] LABS: Prostate Specific Antigen Scrn 0.538 ng/mL (0.1-4.0)
== END ==
PROVIDERS: PCP Family Medicine; Referring Provider Internal Medicine Cardiovascular Disease; Visit Provider Internal Medicine Cardiovascular Disease
DX: Z00.00 Encounter for general adult medical examination without abnormal findings (principal); I10 Essential (primary) hypertension; Z12.5 Encounter for screening for malignant neoplasm of prostate; D69.6 Thrombocytopenia, unspecified; E78.2 Mixed hyperlipidemia; R79.89 Other specified abnormal findings of blood chemistry
CPT/HCPCS: 36415; 80053; 80061; 82043; 82570; 85025; G0103

== ENCOUNTER 2023-12-22 09:00 | Emergency (ER) | payer MEDICARE, OTHER, SELFPAY ==
[2023-12-22] VITALS (8 sets, daily range): BP systolic 131–178; BP diastolic 62–82; PULSE 51–70; RESP 16–25; TEMP 36.4; O2SAT 95–100; BMI 35.4
--- NOTE | 2023-12-22 09:17 | DI.RAD.S_ITS ---
PROCEDURE: XR CHEST 1V INDICATIONS: chest pain TECHNIQUE: One view of the chest was acquired. COMPARISON: , CR, XR CHEST 2V, 04/04/2022, 15:36. , CR, XR CHEST 1V, 03/13/2022, 13:19. FINDINGS: Surgical changes and devices: None. Lungs and pleura: Lungs are clear. No pleural effusions or pneumothorax. Mediastinum: Mediastinal contours appear normal. Heart size is enlarged. Bones and chest wall: No suspicious bony lesions. Overlying soft tissues appear unremarkable. IMPRESSION: No acute cardiopulmonary abnormality is seen. Dictated by: Ger James M.D. on 12/22/2023 at 9:51 Approved by: Ger James M.D. on 12/22/2023 at 9:56
--- NOTE | 2023-12-22 09:18 | ED.NECK ---
HPI - Neck Pain/Injury General Chief Complaint: Chest Pain Stated Complaint: per pt possible stroke last night Time Seen by Provider: 12/22/23 09:11 Mode of arrival: Ambulatory History of Present Illness HPI Narrative: Patient is a 78-year-old male history of hypertension, angina presenting today with back pain. He reports that last night he was standing he felt pain all across his back and into his arms. He said it was quite painful he needed to lay down on the bed and then it went away. He denied any chest pain at this time. No shortness of breath. He says he went to sleep. He has not had any sort of recurrence of back pain. He states he did not have any chest pain or shortness of breath. He has had chest pain with exertion which stops with rest. He reports he has had stress tests and maybe cardiac catheterizations as well but he has no stents. He is followed by cardiology Dr. Alcocer. 2 days ago he again had some chest pain with exertion resolved with rest. Reports that he wash to car yesterday and worked out in the yard quite a bit. Related Data Home Medications Medication Instructions Recorded Confirmed hydrochlorothiazide 25 mg tablet 25 mg PO DAILY 08/07/23 08/07/23 losartan 50 mg tablet 25 mg PO DAILY 08/07/23 08/07/23 Allergies Allergy/AdvReac Type Severity Reaction Status Date / Time oxycodone [OXYCODONE] Allergy Unknown HIVES Verified 12/22/23 09:13 Patient History Medical History (Updated 12/22/23 @ 10:26 by Roxana Ford DO) Left lower lobe pulmonary nodule Hypertension Carpal tunnel syndrome of left wrist Erectile dysfunction Memory loss Thrombocytopenia Hand abrasion, infected (05/2015) Shoulder pain (1975) Fractures (1975) 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 HEENT: Head atraumatic,EOMI, pupils reactive, face symmetric, moist mucous membranes CARDIOVASCULAR: Regular rate and rhythm without murmurs, rubs or gallops. RESPIRATORY: Breath sounds equal bilaterally, no wheezes rales or rhonchi. ABDOMEN: Soft, nontender. Normoactive bowel sounds all 4 quadrants. No guarding or rebound. EXTREMITIES: Normal range of motion, no clubbing or edema. Neurovascularly intact BACK: No vertebral tenderness no muscle spasm NEUROLOGICAL: Alert and oriented x4.Normal gait and speech. SKIN: Warm, dry, no laceration, no petechiae, no rashes or lesions. Course Orders Ordered: ED Orders 12/22/23 09:15 Complete Blood Count AUTO DIFF Stat Comprehensive Metabolic Panel Stat D Dimer Stat Lipase Stat NT-proBNP (BNP-Adult 18+) Stat Troponin & CK Cardiac Panel Stat 12/22/23 09:17 XR chest 1V Stat EKG-12 Lead Stat Discontinued Medications Aspirin (Aspirin 81 Mg Chew Tab) 324 mg PO NOW ONE Stop: 12/22/23 09:18 Last Admin: 12/22/23 09:27 Dose: 324 mg Documented By: LUCIA Vital Signs Vital signs: Vital Signs - 8 hr 12/22/23 09:05 12/22/23 09:05 12/22/23 09:10 Temperature 97.5 F L Pulse Rate 69 70 Respiratory Rate 16 Blood Pressure 146/82 H 146/82 H Pulse Oximetry 96 98 Oxygen Delivery Method Room Air 12/22/23 09:13 12/22/23 09:13 12/22/23 09:30 Temperature Pulse Rate 59 L 57 L Respiratory Rate 25 H 17 Blood Pressure 178/81 H Pulse Oximetry 100 98 Oxygen Delivery Method 12/22/23 09:31 12/22/23 09:31 12/22/23 10:00 Temperature Pulse Rate 55 L 53 L Respiratory Rate 17 19 Blood Pressure 150/69 H Pulse Oximetry 97 96 Oxygen Delivery Method 12/22/23 10:01 12/22/23 10:01 12/22/23 10:30 Temperature Pulse Rate 52 L 51 L Respiratory Rate 18 16 Blood Pressure 131/62 Pulse Oximetry 96 95 Oxygen Delivery Method MDM - Neck Pain/Injury Lab Data 12/22/23 09:15 12/22/23 09:15 Labs: Lab Results 12/22/23 Range/Units 09:15 WBC 6.3 (4.5-11.0) X10^3/uL RBC 4.66 (4.5-5.9) X10^6/uL Hgb 14.4 (13.5-17.5) g/dL Hct 42.4 (41-53) % MCV 91.0 (80-100) fL MCH 30.8 (26-34) PG MCHC 33.9 (30-36) % RDW 14.1 (11.6-14.8) % Plt Count 145 L (150-400) X10^3/uL Neut % (Auto) 58.8 (50-75) % Lymph % (Auto) 24.2 L (25-40) % [place] % (Auto) 8.5 (3-14) % Eos % (Auto) 7.4 H (2-4) % Baso % (Auto) 1.1 (0-2) % Neut # (Auto) 3700 (7790-2287) /uL Lymph # (Auto) 1500 (4568-3434) /uL [place] # (Auto) 500 (0-900) /uL Eos # (Auto) 500 H (0-450) /uL Baso # (Auto) 100 (0-100) /uL D-Dimer 469 (<500) ng/ml Sodium 140 (137-145) mmol/L Potassium 4.1 (3.4-5.1) mmol/L Chloride 103 (98-107) mmol/L Carbon Dioxide 34 H (22-32) mmol/L BUN 29 H (9-20) mg/dL Creatinine 1.41 H (0.66-1.25) mg/dL Estimated GFR 50 L (>60) mL/min BUN/Creatinine Ratio 20.6 (6-22) Glucose 90 (80-110) mg/dL Calcium 9.7 (8.4-10.2) mg/dL Total Bilirubin 1.0 (0.2-1.3) mg/dL AST 36 (17-59) IU/L ALT 38 (<50) IU/L Alkaline Phosphatase 61 (38-126) U/L Total Creatine Kinase 70 (55-170) U/L Troponin I < 0.012 (0.01-0.034) ng/mL NT-Pro-B Natriuret Pep 61 (<450) pg/mL Total Protein 7.4 (6.3-8.2) g/dL Albumin 4.2 (3.5-5.0) g/dL Globulin 3.2 (1.7-4.1) g/dL Albumin/Globulin Ratio 1.3 (1.0-2.8) Lipase 71 (23-300) U/L Imaging Data Chest x-ray: Radiologist's Impression: PROCEDURE: XR CHEST 1V INDICATIONS: chest pain TECHNIQUE: One view of the chest was acquired. COMPARISON: [facility], CR, XR CHEST 2V, 04/04/2022, 15:36. [facility], , XR CHEST 1V, 03/13/2022, 13:19. FINDINGS: Surgical changes and devices: None. Lungs and pleura: Lungs are clear. No pleural effusions or pneumothorax. Mediastinum: Mediastinal contours appear normal. Heart size is enlarged. Bones and chest wall: No suspicious bony lesions. Overlying soft tissues appear unremarkable. IMPRESSION: No acute cardiopulmonary abnormality is seen. Dictated by: Ger James M.D. on 12/22/2023 at 9:51 ECG Data Attestation: I personally reviewed and interpreted this ECG as follows: Prior ECG tracings: available for review Interpretation: Normal sinus rhythm rate 56 NV interval 206 QRS 80 QTC 416 T-wave inversion noted in lead 3 only similar to previous EKGs MDM Narrative Medical decision making narrative: Patient is an 78-year-old male history of hypertension and angina presenting today with back pain which lasted for couple minutes last night and has not resolved. Started in the between his shoulder blades and went down both arms. Blood work has been reviewed; within normal limits stable kidney disease troponin negative D-dimer also negative Chest x-ray reviewed no acute cardiopulmonary process EKG remained stable At this time patient did a lot of physical activity yesterday had spasming in his thoracic area down his arms which lasted for a couple of minutes. He apparently got very weak and needed to lay down. But no focal deficits no concern for stroke. He had no recurrence of pain. He currently has no chest pain. Considered dissection but symptoms did not last long no longer having symptoms D-dimer is negative I think unlikely to be a dissection I think more likely this is musculoskeletal secondary to excessive manual labor Discharge Plan Departure Patient Disposition: Home Clinical Impression: Muscle spasm Instructions: DI for Back Spasm Activity Restrictions/Additional Instructions: *You have been diagnosed with back spasm *What to do: At this time expect to be sore may try ice or heat. *Continue to take medications as directed Tylenol 650 mg every 4-6 hours if needed for [id number] pain *Follow up with your primary care provider in 2-3 days or call [phone] *Return to ER if you should have increasing pain chest pain shortness of breath weakness facial droop difficulty speaking [or] any new, worsening or concerning symptoms Prescriptions: No Action losartan 50 mg tablet 25 mg PO DAILY hydrochlorothiazide 25 mg tablet 25 mg PO DAILY Referrals: Deshawn Vega MD [Primary Care Provider] - Stand Alone Forms: Patient Portal/API
--- NOTE | 2023-12-22 09:22 | PC.NURSE ---
Pt reports 2 days ago was walking with and had slight midsternal chest pain and SOB which resolved when he rested. Then last night has sudden onset neck pain and numbness down bilateral arms which resolved after a few min however it was painful enough that he told his and had to lay down--reports he did yardwork, was lifting heavy things and working on his boat yesterday. AAOx3 at this time. FAST neg and denies all pain. Hard of hearing. Uses Dr Alcocer and has had stress test and cardiac caths in the past.
[2023-12-22 09:26] LABS: Add Manual Diff / Slide Review NO; Basophils Absolute Auto 100 /uL (0-100); Basophils Percent Auto 1.1 % (0-2); Eosinophils Absolute Auto 500 /uL (0-450); Eosinophils Percent Auto 7.4 % (2-4); Hematocrit 42.4 % (41-53); Hemoglobin 14.4 g/dL (13.5-17.5); Lymphocytes Absolute Auto 1500 /uL (1100-4500); Lymphocytes Percent Auto 24.2 % (25-40); Mean Corpuscular HGB Conc 33.9 % (30-36); Mean Corpuscular Hemoglobin 30.8 PG (26-34); Monocytes Absolute Auto 500 /uL (0-900); Monocytes Percent Auto 8.5 % (3-14); Neutrophils Absolute Auto 3700 /uL (1500-7000); Neutrophils Percent Auto 58.8 % (50-75); Platelet Count 145 X10^3/uL (150-400); Red Blood Cell Count 4.66 X10^6/uL (4.5-5.9); Red Cell Distribution Width 14.1 % (11.6-14.8); White Blood Cell Count 6.3 X10^3/uL (4.5-11.0)
[2023-12-22] MEDS: ASPIRIN 81 MG CHEW TAB 324 MG PO (09:27)
[2023-12-22 09:33] LABS: Alanine Aminotransferase 38 IU/L (<50); Albumin 4.2 g/dL (3.5-5.0); Albumin Globulin Ratio 1.3 (1.0-2.8); Alkaline Phosphatase 61 U/L (38-126); Aspartate Aminotransferase 36 IU/L (17-59); BUN Creatinine Ratio 20.6 (6-22); Blood Urea Nitrogen 29 mg/dL (9-20); Calcium 9.7 mg/dL (8.4-10.2); Carbon Dioxide 34 mmol/L (22-32); Chloride 103 mmol/L (98-107); Creatine Kinase 70 U/L (55-170); Estimated Glomerular Filt Rate 50 mL/min (>60); Globulin 3.2 g/dL (1.7-4.1); Glucose 90 mg/dL (80-110); HEMOLYSIS < 15 (0-50); Lipase 71 U/L (23-300); Potassium 4.1 mmol/L (3.4-5.1); Sodium 140 mmol/L (137-145); Total Protein 7.4 g/dL (6.3-8.2)
[2023-12-22 09:37] LABS: D Dimer 469 ng/ml (<500)
[2023-12-22 09:43] LABS: NT-proBNP (BNP-Adult 18+) 61 pg/mL (<450)
[2023-12-22 09:45] LABS: Troponin I < 0.012 ng/mL (0.01-0.034)
== END 2023-12-22 10:34 | disposition home or self-care (01) ==
PROVIDERS: Emergency Provider Emergency Medicine; PCP Family Medicine
DX: M62.830 Muscle spasm of back (principal); R07.9 Chest pain, unspecified
CPT/HCPCS: 36415; 71045; 80053; 82550; 83690; 83880; 84484; 85025; 85379; 93005; 93010; 99284

== ENCOUNTER → 2024-04-02 07:32 | Outpatient (CLI) | payer MEDICARE, OTHER, SELFPAY ==
[2024-04-02 08:00] LABS: Add Manual Diff / Slide Review NO; Basophils Absolute Auto 100 /uL (0-100); Basophils Percent Auto 1.4 % (0-2); Eosinophils Absolute Auto 400 /uL (0-450); Eosinophils Percent Auto 6.7 % (2-4); Hematocrit 40.3 % (41-53); Hemoglobin 13.6 g/dL (13.5-17.5); Lymphocytes Absolute Auto 1100 /uL (1100-4500); Lymphocytes Percent Auto 17.9 % (25-40); Mean Corpuscular HGB Conc 33.7 % (30-36); Mean Corpuscular Hemoglobin 31.3 PG (26-34); Monocytes Absolute Auto 500 /uL (0-900); Monocytes Percent Auto 7.3 % (3-14); Neutrophils Absolute Auto 4200 /uL (1500-7000); Neutrophils Percent Auto 66.7 % (50-75); Platelet Count 136 X10^3/uL (150-400); Red Blood Cell Count 4.33 X10^6/uL (4.5-5.9); Red Cell Distribution Width 13.9 % (11.6-14.8); White Blood Cell Count 6.3 X10^3/uL (4.5-11.0)
[2024-04-02 08:18] LABS: Alanine Aminotransferase 44 IU/L (<50); Albumin 3.9 g/dL (3.5-5.0); Albumin Globulin Ratio 1.4 (1.0-2.8); Alkaline Phosphatase 69 U/L (38-126); Aspartate Aminotransferase 31 IU/L (17-59); BUN Creatinine Ratio 17.8 (6-22); Bilirubin Total 0.7 mg/dL (0.2-1.3); Blood Urea Nitrogen 24 mg/dL (9-20); Carbon Dioxide 31 mmol/L (22-32); Chloride 106 mmol/L (98-107); Estimated Glomerular Filt Rate 53 mL/min (>60); Globulin 2.8 g/dL (1.7-4.1); Glucose 111 mg/dL (80-110); HEMOLYSIS < 15 (0-50); Potassium 4.4 mmol/L (3.4-5.1); Sodium 140 mmol/L (137-145); Total Protein 6.7 g/dL (6.3-8.2)
[2024-04-02 08:19] LABS: BUN Creatinine Ratio 17.6 (6-22); Blood Urea Nitrogen 24 mg/dL (9-20); Calcium 9.2 mg/dL (8.4-10.2); Carbon Dioxide 30 mmol/L (22-32); Chloride 107 mmol/L (98-107); Estimated Glomerular Filt Rate 53 mL/min (>60); Glucose 110 mg/dL (80-110); HEMOLYSIS < 15 (0-50); Potassium 4.4 mmol/L (3.4-5.1); Sodium 140 mmol/L (137-145)
[2024-04-02 08:52] LABS: TSH w/ Reflex to FT4 1.54 uIU/mL (0.47-4.68)
[2024-04-02 09:08] LABS: Vitamin B12 426 pg/mL (239-931)
[2024-04-02 10:29] LABS: Uric Acid 5.6 mg/dL (3.5-8.5)
== END ==
PROVIDERS: PCP Family Medicine; Referring Provider Internal Medicine Cardiovascular Disease; Visit Provider Internal Medicine Cardiovascular Disease
DX: I10 Essential (primary) hypertension (principal); M10.9 Gout, unspecified
CPT/HCPCS: 36415; 80048; 80053; 82607; 84443; 84550; 85025

== ENCOUNTER → 2024-05-08 11:27 | Outpatient (CLI) | payer MEDICARE, OTHER, SELFPAY ==
--- NOTE | 2024-05-08 11:28 | DI.RAD.S_ITS ---
PROCEDURE: XR TOE RT MIN 2V INDICATIONS: Persistent gout flare TECHNIQUE: 3 views of the 4th toe(s) acquired. COMPARISON: None. FINDINGS: Bones: No fractures or dislocations. No suspicious bony lesions. Within the distal 4th middle phalanx, there are peripheral erosions with overhanging edges. There are peripheral erosions with overhanging edges at the distal 1st metatarsal bone. 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 Soft tissues: No suspicious soft tissue densities. There is soft tissue swelling of the 4th toe and dorsal aspect of the foot. IMPRESSION: There is suggestion for an acute flare of gout within the 4th toe. Dictated by: Damien Courtney M.D. on 05/10/2024 at 8:19 Approved by: Damien Courtney M.D. on 05/10/2024 at 8:29
== END ==
PROVIDERS: PCP Family Medicine; Referring Provider Physician Assistant; Visit Provider Physician Assistant
DX: M10.9 Gout, unspecified (principal); M79.674 Pain in right toe(s)
CPT/HCPCS: 73660

== ENCOUNTER → 2024-08-14 06:32 | Outpatient (CLI) | payer MEDICARE, OTHER, SELFPAY ==
[2024-08-14 07:57] LABS: Add Manual Diff / Slide Review NO; Basophils Absolute Auto 0 /uL (0-100); Basophils Percent Auto 0.6 % (0-2); Eosinophils Absolute Auto 400 /uL (0-450); Eosinophils Percent Auto 6.9 % (2-4); Hematocrit 42.5 % (41-53); Hemoglobin 14.1 g/dL (13.5-17.5); Lymphocytes Absolute Auto 1400 /uL (1100-4500); Lymphocytes Percent Auto 24.4 % (25-40); Mean Corpuscular HGB Conc 33.2 % (30-36); Mean Corpuscular Hemoglobin 31.9 PG (26-34); Mean Corpuscular Volume 95.9 fL (80-100); Monocytes Absolute Auto 400 /uL (0-900); Monocytes Percent Auto 7.6 % (3-14); Neutrophils Absolute Auto 3400 /uL (1500-7000); Neutrophils Percent Auto 60.5 % (50-75); Platelet Count 148 X10^3/uL (150-400); Red Blood Cell Count 4.44 X10^6/uL (4.5-5.9); Red Cell Distribution Width 14.9 % (11.6-14.8); White Blood Cell Count 5.5 X10^3/uL (4.5-11.0)
[2024-08-14 08:08] LABS: Hemoglobin A1C% w Est Avg Glu 5.7 % (4.0-6.0)
[2024-08-14 08:21] LABS: Alanine Aminotransferase 41 IU/L (<50); Albumin Globulin Ratio 1.7 (1.0-2.8); Alkaline Phosphatase 79 U/L (38-126); Aspartate Aminotransferase 33 IU/L (17-59); BUN Creatinine Ratio 17.8 (6-22); Bilirubin Total 0.5 mg/dL (0.2-1.3); Blood Urea Nitrogen 23 mg/dL (9-20); Calcium 9.3 mg/dL (8.4-10.2); Carbon Dioxide 27 mmol/L (22-32); Chloride 106 mmol/L (98-107); Cholesterol 180 mg/dL (140-199); Estimated Glomerular Filt Rate 56 mL/min (>60); Globulin 2.3 g/dL (1.7-4.1); Glucose 103 mg/dL (80-110); HDL Cholesterol 37 mg/dL (40-60); HEMOLYSIS < 15 (0-50); LDL Cholesterol Calculated 123 mg/dL (<100); Potassium 4.4 mmol/L (3.4-5.1); Sodium 139 mmol/L (137-145); Total Protein 6.3 g/dL (6.3-8.2); Triglycerides 101 mg/dL (35-150); Uric Acid 4.4 mg/dL (3.5-8.5)
[2024-08-14 08:25] LABS: Magnesium 1.8 mg/dL (1.6-2.3)
[2024-08-14 08:48] LABS: Prostate Specific Antigen Scrn 0.525 ng/mL (0.1-4.0)
[2024-08-14 08:51] LABS: TSH w/ Reflex to FT4 2.51 uIU/mL (0.47-4.68)
[2024-08-14 11:57] LABS: Creatinine Urine Random 112.47 mg/dL
[2024-08-14 12:02] LABS: Microalbumin Urine Random < 0.6 mg/dL (0-1.6)
== END ==
PROVIDERS: PCP Family Medicine; Referring Provider Internal Medicine Cardiovascular Disease; Visit Provider Internal Medicine Cardiovascular Disease
DX: I10 Essential (primary) hypertension (principal); Z12.5 Encounter for screening for malignant neoplasm of prostate; Z13.1 Encounter for screening for diabetes mellitus; I25.10 Atherosclerotic heart disease of native coronary artery without angina pectoris; E78.5 Hyperlipidemia, unspecified; M10.9 Gout, unspecified; R73.9 Hyperglycemia, unspecified; D69.6 Thrombocytopenia, unspecified; E78.2 Mixed hyperlipidemia; R53.83 Other fatigue
CPT/HCPCS: 36415; 80053; 80061; 82043; 82570; 83036; 83735; 84443; 84550; 85025; G0103

== ENCOUNTER → 2024-09-04 13:56 | Outpatient (CLI) | payer MEDICARE, OTHER, SELFPAY | PROVIDERS: PCP Family Medicine; Referring Provider Family Medicine; Visit Provider Family Medicine | DX: R06.2 Wheezing (principal); R94.2 Abnormal results of pulmonary function studies | CPT/HCPCS: 94060; 94726; 94729 ==

== ENCOUNTER 2025-01-10 08:47 | Emergency (ER) | payer MEDICARE, OTHER, SELFPAY ==
[2025-01-10 09:01] VITALS: BP 178/85; PULSE 77; RESP 17; TEMP 36.8; O2SAT 97; BMI 35.4
--- NOTE | 2025-01-10 09:05 | DI.RAD.S_ITS ---
PROCEDURE: XR CHEST 1V INDICATIONS: Shortness of breath TECHNIQUE: One view of the chest was acquired. COMPARISON: [facility], CR, XR CHEST 1V, 12/22/2023, 9:35. FINDINGS: Surgical changes and devices: None. Lungs and pleura: Lungs are clear. No pleural effusions or pneumothorax. Mediastinum: Mediastinal contours appear normal. Heart size is enlarged. Bones and chest wall: No suspicious bony lesions. Overlying soft tissues appear unremarkable. IMPRESSION: No acute pulmonary process. Dictated by: Annie Mccauley M.D. on 01/10/2025 at 10:09 Approved by: Annie Mccauley M.D. on 01/10/2025 at 10:14
--- NOTE | 2025-01-10 09:23 | ED_ITS ---
HPI - URI/Sore Throat General Chief Complaint: Shortness of Breath/Dyspnea Stated Complaint: Cold symptoms t-2 with chest pain Time Seen by Provider: 01/10/25 09:12 Source: patient Mode of arrival: Family Vehicle History of Present Illness HPI Narrative: 79-year-old gentleman history of high blood pressure and gout on just recently came back from a cruise presents with cough with yellow green sputum production for 2 days along with body aches. His son which also went on the trip has had the same symptoms. Denies fever chills nausea vomiting diarrhea rash. Other than what is stated 14 point review of system is negative. Related Data Home Medications Medication Instructions Recorded Confirmed hydrochlorothiazide 25 mg tablet 25 mg PO DAILY 08/07/23 08/22/24 losartan 50 mg tablet 25 mg PO DAILY 08/07/23 08/22/24 Previous Rx's Medication Instructions Recorded allopurinol 300 mg tablet 300 mg PO DAILY #90 tabs 07/01/24 Disabled Parking Permit #1 ea 10/07/24 amoxicillin 875 mg-potassium 1 tab PO Q12H #14 tabs 01/10/25 clavulanate 125 mg tablet azithromycin 250 mg tablet 250 mg PO DAILY 4 days #4 tabs 01/10/25 Allergies Allergy/AdvReac Type Severity Reaction Status Date / Time oxycodone [OXYCODONE] Allergy Unknown HIVES Verified 01/10/25 09:04 Review of Systems Review of Systems ROS Unobtainable: All systems reviewed & are unremarkable except as noted in HPI and below Patient History Medical History (Updated 01/10/25 @ 10:31 by Kirk Medrano, DO) Left lower lobe pulmonary nodule Hypertension Carpal tunnel syndrome of left wrist Erectile dysfunction Memory loss Thrombocytopenia Hand abrasion, infected (05/2015) Shoulder pain (1975) Fractures (1975) 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 Well-developed patient, in mild distress. HEAD: Atraumatic. Normocephalic. EYES: Pupils equal round and reactive. Extraocular motions intact. No scleral icterus. No injection or drainage. ENT: Nose without bleeding, purulent drainage. Throat without erythema, tonsillar hypertrophy or exudate. Airway patent. NECK: Trachea midline. Non tender CARDIOVASCULAR: Regular rate and rhythm without murmurs, gallops, or rubs. RESPIRATORY: Coarse rhonchi b/l with faint wheeze at bases. GASTROINTESTINAL: Abdomen soft, non-tender, nondistended. EXTREMITIES: No edema or joint tenderness. BACK: Nontender without deformity or crepitance. No flank tenderness. NEURO: AOx3. SKIN: No rash or erythema of visible areas Initial Vital Signs Initial Vital Signs: Vital Signs Temperature 98.2 F 01/10/25 09:01 Pulse Rate 77 01/10/25 09:01 Respiratory Rate 17 01/10/25 09:01 Blood Pressure 178/85 H 01/10/25 09:01 Pulse Oximetry 97 01/10/25 09:01 Oxygen Delivery Method Room Air 01/10/25 09:01 Course Orders Ordered: ED Orders 01/10/25 09:05 XR chest 1V Stat EKG-12 Lead Stat Measure peak expiratory flow ONCE RT Consult Eval and Treat NOW 01/10/25 09:07 Covid-19 + FLU A/B + RSV - PCR Stat 01/10/25 09:41 Complete Blood Count AUTO DIFF Stat Comprehensive Metabolic Panel Stat Lactate (Lactic Acid) Stat NT-proBNP (BNP-Adult 18+) Stat Prothrombin Time INR Stat Troponin I Stat Discontinued Medications Albuterol/Ipratropium (Albuterol/Ipratropium 3 Ml Ampul) 3 ml INH NOW ONE Stop: 01/10/25 09:46 Last Admin: 01/10/25 09:49 Dose: 3 ml Documented By: AUDREY Methylprednisolone (Methylprednisolone 125 Mg/2 Ml Vial) 125 mg IV NOW ONE Stop: 01/10/25 09:46 Last Admin: 01/10/25 09:51 Dose: 125 mg Documented By: AUDREY Vital Signs Vital signs: Vital Signs - 8 hr 01/10/25 09:01 01/10/25 09:55 Temperature 98.2 F Pulse Rate 77 82 Respiratory Rate 17 22 Blood Pressure 178/85 H Pulse Oximetry 97 96 Oxygen Delivery Method Room Air Room Air MDM - URI/Sore Throat Lab Data 01/10/25 09:41 01/10/25 09:41 Labs: Lab Results 01/10/25 01/10/25 Range/Units 09:07 09:41 WBC 10.9 (4.5-11.0) X10^3/uL RBC 4.60 (4.5-5.9) X10^6/uL Hgb 14.6 (13.5-17.5) g/dL Hct 44.2 (41-53) % MCV 96.2 (80-100) fL MCH 31.8 (26-34) PG MCHC 33.0 (30-36) % RDW 15.1 H (11.6-14.8) % Plt Count 137 L (150-400) X10^3/uL Neut % (Auto) 78.5 H (50-75) % Lymph % (Auto) 9.6 L (25-40) % [place] % (Auto) 5.4 (3-14) % Eos % (Auto) 6.1 H (2-4) % Baso % (Auto) 0.4 (0-2) % Neut # (Auto) 8500 H (1861-3345) /uL Lymph # (Auto) 1000 L (0136-0230) /uL [place] # (Auto) 600 (0-900) /uL Eos # (Auto) 700 H (0-450) /uL Baso # (Auto) 0 (0-100) /uL PT 14.6 H (9.4-12.5) SECONDS INR 1.3 (0.9-1.3) Sodium 137 (137-145) mmol/L Potassium 4.1 (3.4-5.1) mmol/L Chloride 102 (98-107) mmol/L Carbon Dioxide 25 (22-32) mmol/L BUN 19 (9-20) mg/dL Creatinine 1.30 H (0.66-1.25) mg/dL Estimated GFR 55 L (>60) mL/min BUN/Creatinine Ratio 14.6 (6-22) Glucose 166 H (80-110) mg/dL Lactate 1.4 (0.7-2.1) mmol/L Calcium 9.1 (8.4-10.2) mg/dL Total Bilirubin 1.1 (0.2-1.3) mg/dL AST 35 (17-59) IU/L ALT 44 (<50) IU/L Alkaline Phosphatase 82 (38-126) U/L Troponin I < 0.012 (0.01-0.034) ng/mL NT-Pro-B Natriuret Pep 181 (<450) pg/mL Total Protein 6.9 (6.3-8.2) g/dL Albumin 4.3 (3.5-5.0) g/dL Globulin 2.6 (1.7-4.1) g/dL Albumin/Globulin Ratio 1.7 (1.0-2.8) SARS-CoV-2 (PCR) Negative (Negative) Influenza A (RT-PCR) Flu a negative (NEGATIVE) Influenza B (RT-PCR) Flu b negative (NEGATIVE) RSV (PCR) Negative (Negative) Imaging Data Chest x-ray: Radiologist's Impression: [place] [address] XRay Report Signed Patient: Isreal Broderick V MR#: [id number] : 1945 Acct:[id number] Age/Sex: 79 / M Date of Service: 01/10/25 Loc: ED Accession Number: [id number] Procedure: XR chest 1V Ordering Provider: Kirk Medrano D.O. PROCEDURE: XR CHEST 1V INDICATIONS: Shortness of breath TECHNIQUE: One view of the chest was acquired. COMPARISON: [facility], , XR CHEST 1V, 12/22/2023, 9:35. FINDINGS: Surgical changes and devices: None. Lungs and pleura: Lungs are clear. No pleural effusions or pneumothorax. Mediastinum: Mediastinal contours appear normal. Heart size is enlarged. Bones and chest wall: No suspicious bony lesions. Overlying soft tissues appear unremarkable. IMPRESSION: No acute pulmonary process. Dictated by: Annie Mccauley M.D. on 01/10/2025 at 10:09 Approved by: Annie Mccauley M.D. on 01/10/2025 at 10:14 ECG Data Interpretation: NSR HR [address]-t wave change GA 192 QRS 80 QT 376 Unchanged from 08/19/19 MDM Narrative Medical decision making narrative: All lab work chest x-ray EKG medication list nurse triage note vital signs all reviewed including all previous ER visits. Patient given DuoNeb Solu-Medrol 125 mg IV Augmentin and Zithromax here. Differential diagnosis COVID flu RSV pneumonia bronchitis STEMI NSTEMI strep throat. DC home on Augmentin and Zithromax. Return with new or worsening symptoms. Discharge Plan Departure Patient Disposition: Home Clinical Impression: Pneumonia Qualifiers: Pneumonia type: due to Pneumococcus Instructions: DI for Pneumonia -- Adult Activity Restrictions/Additional Instructions: Return with new or worsening symptoms. Take your medicines as directed. Follow up with PCP in 1-2 weeks Prescriptions: New amoxicillin-pot clavulanate 875-125 mg tablet 1 tab PO Q12H Qty: 14 0RF azithromycin 250 mg tablet 250 mg PO DAILY 4 Days Qty: 4 0RF Rx Instructions: start on day 2 of therapy No Action (DME) Disabled Parking Permit See Rx Instructions .ROUTE .MEDSUPPLY Qty: 1 0RF Rx Instructions: I find this patient to be medically disabled and qualified for Disabled Parking as indicated and signed on the accompanying Disabled Parking Application for Individuals. losartan 50 mg tablet 25 mg PO DAILY hydrochlorothiazide 25 mg tablet 25 mg PO DAILY Hold Instructions: gout flare allopurinol 300 mg tablet 300 mg PO DAILY Qty: 90 1RF Rx Instructions: Take one tablet once daily Referrals: Deshawn Vega MD [Primary Care Provider] - Stand Alone Forms: Patient Portal/API/Survey
--- NOTE | 2025-01-10 09:41 | EKG_ITS ---
[address] [address] Test Date: 2025-01-10 Pat Name: Isreal Bachs Department: Room: Gender: Male [employer] Chair: ABIMAEL : 1945 Requested By: Order Number: [id number] Reading MD: Isreal Hall Measurements Intervals [place] Rate: 70 P: 54 MT: 192 QRS: -11 QRSD: 80 T: 10 QT: 376 QTc: 406 Interpretive Statements Normal sinus rhythm Minimal voltage criteria for LVH, may be normal variant ( R in aVL ) Electronically Signed On 01-10-2025 19:11:21 PDT by Isreal Hall
[2025-01-10 09:44] VITALS: PULSE 71; RESP 22; O2SAT 94
[2025-01-10 09:46] VITALS: BP 175/79; PULSE 70; RESP 20; O2SAT 96
[2025-01-10 09:48] LABS: Add Manual Diff / Slide Review NO; Basophils Absolute Auto 0 /uL (0-100); Basophils Percent Auto 0.4 % (0-2); Eosinophils Absolute Auto 700 /uL (0-450); Eosinophils Percent Auto 6.1 % (2-4); Hematocrit 44.2 % (41-53); Hemoglobin 14.6 g/dL (13.5-17.5); Lymphocytes Absolute Auto 1000 /uL (1100-4500); Lymphocytes Percent Auto 9.6 % (25-40); Mean Corpuscular Hemoglobin 31.8 PG (26-34); Mean Corpuscular Volume 96.2 fL (80-100); Monocytes Absolute Auto 600 /uL (0-900); Monocytes Percent Auto 5.4 % (3-14); Neutrophils Absolute Auto 8500 /uL (1500-7000); Neutrophils Percent Auto 78.5 % (50-75); Platelet Count 137 X10^3/uL (150-400); Red Cell Distribution Width 15.1 % (11.6-14.8); White Blood Cell Count 10.9 X10^3/uL (4.5-11.0)
[2025-01-10] MEDS: ALBUTEROL/IPRATROPIUM 3 ML AMPUL INH (09:49)
[2025-01-10] MEDS: methylPREDNISolone 125 MG/2 ML VIAL IV (09:51)
[2025-01-10 09:52] LABS: Influenza A - CEPHEID Flu A NEGATIVE (NEGATIVE); Influenza B - CEPHEID Flu B NEGATIVE (NEGATIVE); Respiratory Syncytial Virus Negative (Negative)
[2025-01-10 09:53] LABS: COVID-19 CEPHEID 4-PLEX PCR Negative (Negative)
--- NOTE | 2025-01-10 09:54 | PC.NURSE ---
Pt ambulatory to room. Appears in NAD. Talking in full sentences. Slight expiratory wheeze noted. VSS
[2025-01-10 09:55] VITALS: PULSE 82; RESP 22; O2SAT 96
[2025-01-10 09:57] LABS: INR 1.3 (0.9-1.3); Prothrombin Time 14.6 SECONDS (9.4-12.5)
[2025-01-10 10:00] VITALS: BP 150/74; PULSE 71; RESP 23; O2SAT 96
[2025-01-10 10:01] LABS: Alanine Aminotransferase 44 IU/L (<50); Albumin 4.3 g/dL (3.5-5.0); Albumin Globulin Ratio 1.7 (1.0-2.8); Alkaline Phosphatase 82 U/L (38-126); Aspartate Aminotransferase 35 IU/L (17-59); BUN Creatinine Ratio 14.6 (6-22); Bilirubin Total 1.1 mg/dL (0.2-1.3); Blood Urea Nitrogen 19 mg/dL (9-20); Calcium 9.1 mg/dL (8.4-10.2); Carbon Dioxide 25 mmol/L (22-32); Chloride 102 mmol/L (98-107); Estimated Glomerular Filt Rate 55 mL/min (>60); Globulin 2.6 g/dL (1.7-4.1); Glucose 166 mg/dL (80-110); HEMOLYSIS < 15 (0-50); Lactate (Lactic Acid) 1.4 mmol/L (0.7-2.1); Potassium 4.1 mmol/L (3.4-5.1); Sodium 137 mmol/L (137-145); Total Protein 6.9 g/dL (6.3-8.2)
--- NOTE | 2025-01-10 10:03 | RT ---
pt fawn briggs tx well, no distress noted and on room air.
[2025-01-10 10:13] LABS: NT-proBNP (BNP-Adult 18+) 181 pg/mL (<450); Troponin I < 0.012 ng/mL (0.01-0.034)
[2025-01-10 10:30] VITALS: BP 141/65; PULSE 66; RESP 16; O2SAT 95
[2025-01-10] MEDS: ALBUTEROL HFA PREPACK 1 BOX MISC (10:50)
[2025-01-10] MEDS: AMOXICILLIN/CLAV 875/125 MG 1 TAB PO (10:50)
[2025-01-10] MEDS: AZITHROMYCIN 250 MG TABLET 500 MG PO (10:51)
== END 2025-01-10 11:03 | disposition home or self-care (01) ==
PROVIDERS: Emergency Provider Family Medicine; PCP Family Medicine
DX: J15.69 Pneumonia due to other Gram-negative bacteria (principal)
CPT/HCPCS: 0241U; 36415; 71045; 80053; 83605; 83880; 84484; 85025; 85610; 93005; 94640; 96374; 99284; J2919

== ENCOUNTER → 2025-02-19 07:04 | Outpatient (CLI) | payer MEDICARE, OTHER, SELFPAY ==
[2025-02-19 07:49] LABS: Add Manual Diff / Slide Review NO; Basophils Absolute Auto 100 /uL (0-100); Eosinophils Absolute Auto 400 /uL (0-450); Eosinophils Percent Auto 6.4 % (2-4); Hematocrit 43.1 % (41-53); Hemoglobin 14.4 g/dL (13.5-17.5); Lymphocytes Absolute Auto 1400 /uL (1100-4500); Lymphocytes Percent Auto 21.6 % (25-40); Mean Corpuscular HGB Conc 33.5 % (30-36); Mean Corpuscular Hemoglobin 32.2 PG (26-34); Mean Corpuscular Volume 95.9 fL (80-100); Monocytes Absolute Auto 400 /uL (0-900); Monocytes Percent Auto 6.6 % (3-14); Neutrophils Absolute Auto 4100 /uL (1500-7000); Neutrophils Percent Auto 64.4 % (50-75); Platelet Count 125 X10^3/uL (150-400); Red Blood Cell Count 4.49 X10^6/uL (4.5-5.9); Red Cell Distribution Width 14.9 % (11.6-14.8); White Blood Cell Count 6.3 X10^3/uL (4.5-11.0)
[2025-02-19 07:59] LABS: Hemoglobin A1C% w Est Avg Glu 5.4 % (4.0-6.0)
[2025-02-19 08:08] LABS: Alanine Aminotransferase 39 IU/L (<50); Albumin 4.3 g/dL (3.5-5.0); Albumin Globulin Ratio 1.9 (1.0-2.8); Alkaline Phosphatase 77 U/L (38-126); Aspartate Aminotransferase 39 IU/L (17-59); BUN Creatinine Ratio 18.7 (6-22); Bilirubin Total 1.2 mg/dL (0.2-1.3); Blood Urea Nitrogen 23 mg/dL (9-20); Calcium 9.1 mg/dL (8.4-10.2); Carbon Dioxide 26 mmol/L (22-32); Chloride 105 mmol/L (98-107); Estimated Glomerular Filt Rate 59 mL/min (>60); Globulin 2.3 g/dL (1.7-4.1); Glucose 111 mg/dL (70-99); HEMOLYSIS 16 (0-50); Potassium 4.3 mmol/L (3.4-5.1); Sodium 139 mmol/L (137-145); Total Protein 6.6 g/dL (6.3-8.2)
[2025-02-19 08:17] LABS: Alanine Aminotransferase 39 IU/L (<50); Albumin 4.3 g/dL (3.5-5.0); Alkaline Phosphatase 80 U/L (38-126); Aspartate Aminotransferase 39 IU/L (17-59); Bilirubin Total 1.3 mg/dL (0.2-1.3); Bilirubin Unconjugated 0.9 mg/dL (0.0-1.1); Cholesterol 183 mg/dL (140-199); Globulin 2.2 g/dL (1.7-4.1); HDL Cholesterol 37 mg/dL (40-60); HEMOLYSIS < 15 (0-50); LDL Cholesterol Calculated 122 mg/dL (<100); Total Protein 6.5 g/dL (6.3-8.2); Triglycerides 118 mg/dL (35-150)
[2025-02-19 08:39] LABS: Prostate Specific Antigen Scrn 0.478 ng/mL (0.1-4.0)
== END ==
LOC: LAB 07:09
PROVIDERS: PCP Family Medicine; Referring Provider Internal Medicine Cardiovascular Disease; Visit Provider Family Medicine
DX: E78.5 Hyperlipidemia, unspecified (principal); Z12.5 Encounter for screening for malignant neoplasm of prostate; E78.2 Mixed hyperlipidemia; I10 Essential (primary) hypertension; D69.6 Thrombocytopenia, unspecified
CPT/HCPCS: 36415; 80053; 80061; 80076; 83036; 85025; G0103

== ENCOUNTER → 2025-09-01 06:27 | Outpatient (CLI) | payer MEDICARE, OTHER, SELFPAY ==
[2025-09-01 07:35] LABS: Add Manual Diff / Slide Review NO; Hematocrit 42.2 % (41-53); Hemoglobin 14.3 g/dL (13.5-17.5); Lymphocytes Absolute Auto 1400 /uL (1100-4500); Mean Corpuscular HGB Conc 33.9 % (30-36); Mean Corpuscular Hemoglobin 32.2 PG (26-34); Mean Corpuscular Volume 95.0 fL (80-100); Platelet Count 132 X10^3/uL (150-400)
[2025-09-01 07:57] LABS: Alanine Aminotransferase 49 IU/L (<50); Albumin 4.3 g/dL (3.5-5.0); Albumin Globulin Ratio 1.8 (1.0-2.8); Alkaline Phosphatase 80 U/L (38-126); Blood Urea Nitrogen 24 mg/dL (9-20); Calcium 9.4 mg/dL (8.4-10.2); Carbon Dioxide 28 mmol/L (22-32); Chloride 106 mmol/L (98-107); Cholesterol 116 mg/dL (140-199); Estimated Glomerular Filt Rate 59 mL/min (>60); Globulin 2.4 g/dL (1.7-4.1); Glucose 111 mg/dL (70-99); HDL Cholesterol 39 mg/dL (40-60); HEMOLYSIS < 15 (0-50); Potassium 4.5 mmol/L (3.4-5.1); Sodium 142 mmol/L (137-145); Total Protein 6.7 g/dL (6.3-8.2); Triglycerides 64 mg/dL (35-150)
[2025-09-01 07:58] LABS: Alanine Aminotransferase 51 IU/L (<50); Albumin 4.4 g/dL (3.5-5.0); Albumin Globulin Ratio 1.6 (1.0-2.8); Alkaline Phosphatase 77 U/L (38-126); Globulin 2.7 g/dL (1.7-4.1); HEMOLYSIS < 15 (0-50); Total Protein 7.1 g/dL (6.3-8.2)
[2025-09-01 08:26] LABS: TSH w/ Reflex to FT4 1.73 uIU/mL (0.47-4.68)
== END ==
PROVIDERS: PCP Family Medicine; Referring Provider Internal Medicine Cardiovascular Disease; Visit Provider Internal Medicine Cardiovascular Disease
DX: E78.5 Hyperlipidemia, unspecified (principal); Z12.5 Encounter for screening for malignant neoplasm of prostate; M1A.9XX0 Chronic gout, unspecified, without tophus (tophi); I10 Essential (primary) hypertension; E78.2 Mixed hyperlipidemia; D69.6 Thrombocytopenia, unspecified
CPT/HCPCS: 36415; 80053; 80061; 80076; 84443; 85025; G0103